=== PATIENT | male | born 1940 | race African-American/Black ===

== ENCOUNTER 2017-11-07 09:20 | Observation (INO) | payer MEDICARE ==
[2017-11-07] MEDS ORDERED: Nitroglycerin 2% Ointment 1 INCH/1 GM Packet ONE (09:39)
[2017-11-07 09:51] LABS: #Eosinphils 0.2 thou/uL (0.0-0.7); #Lymphocytes 2.4 thou/uL (1.20-3.40); #Monocytes 0.5 thou/uL (0.11-0.59); #Neutrophils 4.8 thou/uL (1.40-6.50); %Eosinophils 2.7 % (0.0-10.0); %Monocytes 6.7 % (0.0-10.0); %Neutrophils 60.6 % (42.0-75.0); Hemoglobin 13.9 g/dL (14.0-18.0); Mean Corpuscular HGB CONC 32.4 g/dL (32.0-36.0); Mean Corpuscular Hemoglobin 28.9 pg (27.0-31.0); Mean Corpuscular Volume 89.1 fl (80.0-94.0); Mean Platelet Volume 7.3 fL (7.4-10.4); Platelet Count 277 thou/uL (130-400); RBC Distribution Width 12.5 % (11.5-14.5); Red Blood Cell (RBC) Count 4.81 mill/uL (4.70-6.10)
--- NOTE | 2017-11-07 09:57 | RAD ---
CHEST 1 VIEW: HISTORY: Pain. COMPARISON: 09/26/15. FINDINGS/IMPRESSION: There are sternotomy wires. Normal cardiac silhouette. The pulmonary vessels are slightly prominent . There are reticulonodular opacities, without consolidation or mass. No pleural effusion or pneumo thorax. No osseous abnormalities. POS: [facility]
[2017-11-07 10:19] LABS: Troponin I Less than 0.010 ng/mL (< 0.028)
[2017-11-07 10:22] LABS: ALT (SGPT) 15 U/L (8-55); AST (SGOT) 27 U/L (5-34); Alkaline Phosphatase 69 U/L (40-150); Anion Gap 15 mmol/L (10-20); BUN (Urea Nitrogen) 12 mg/dL (8.4-25.7); Bilirubin, Total 0.5 mg/dL (0.2-1.2); CK (CPK) 435 U/L (30-200); Calc. Creatinine Clearance 0 mL/min (70-130); Calcium 10.6 mg/dL (7.8-10.44); Carbon Dioxide 21 mmol/L (23-31); Chloride 102 mmol/L (98-107); Estimated GFR-MDRD Greater than 90; Globulin 4.2 g/dL (2.4-3.5); Glucose 129 mg/dL (83-110); Potassium 4.3 mmol/L (3.5-5.1); Protein, Total 8.2 g/dL (5.8-8.1); Sodium 134 mmol/L (136-145)
[2017-11-07 10:23] LABS: CKMB 8.7 ng/mL (0-6.6)
[2017-11-07 13:17] LABS: Troponin I Less than 0.010 ng/mL (< 0.028)
[2017-11-07 13:25] VITALS: BMI 32.1
[2017-11-07] MEDS ORDERED: Acetaminophen 500 MG TAB PO PRN (14:37)
[2017-11-07] MEDS ORDERED: Nitroglycerin 0.4 MG TAB (25 Tab Bottle) SL PRN (14:37)
[2017-11-07] MEDS ORDERED: Docusate 100 MG CAP PO PRN (14:37)
[2017-11-07] MEDS ORDERED: Ondansetron HCl/PF 4 MG/2 ML Vial IVP PRN (14:37)
[2017-11-07] MEDS ORDERED: Ondansetron ODT 4 MG TAB PO PRN (14:37)
[2017-11-07] MEDS ORDERED: Milk Of Magnesia 30 ML UDCUP PO PRN (14:37)
[2017-11-07] MEDS ORDERED: HumaLOG 300 UNITS/3 ML VIAL SC PRN (17:04)
[2017-11-07] MEDS ORDERED: Dextrose 50% Abboject 50 ML SYRINGE SLOW IVP PRN (17:04)
[2017-11-07] MEDS ORDERED: Dextrose 5% in Water 1,000 ML IV PRN (17:04)
[2017-11-07] MEDS ORDERED: hydrALAZINE 20 MG/ML VIAL SLOW IVP PRN (17:05)
[2017-11-07] MEDS ORDERED: Morphine 5 MG/ML SYRINGE SLOW IVP PRN (17:07)
[2017-11-07] MEDS: Lubiprostone 8 MCG CAP PO SCH (18:44)
[2017-11-07] MEDS: cloNIDine 0.1 MG TAB PO SCH (20:38)
[2017-11-07] MEDS: hydrALAZINE 25 MG TAB PO SCH (20:38)
[2017-11-07] MEDS: Amlodipine 10 MG TAB PO SCH (20:38)
[2017-11-07] MEDS: Mometasone/Formoterol 120 PUFF INHALER INH SCH (20:41)
[2017-11-07] MEDS ORDERED: RILUZOLE 50 MG PO SCH (21:00)
[2017-11-07 22:45] LABS: Bilirubin Negative (Negative); Blood, Urine Negative (Negative); Clarity CLEAR (Clear); Glucose, Urine (Dipstick) Negative (Negative); Leukocyte Negative (Negative); Nitrite Negative (Negative); Protein, Urine (Dipstick) 30 mg/dL (Neg-Trace); Specific Gravity, Urine 1.012 (1.002-1.036); Urobilinogen 0.2 mg/dL (0.2-1.0)
[2017-11-07 22:50] LABS: Bacteria/HPF None Seen HPF (None Seen); Hyaline Casts/LPF 0-3 HYALINE CAST LPF (0-3 Hyaline); RBC/HPF 0-3 HPF (0-3); Squamous Epithelial None Seen HPF (0-3); WBC/HPF None Seen HPF (0-3)
--- NOTE | 2017-11-08 00:09 | HP ---
DATE OF ADMISSION: 11/07/2017 PRIMARY CARE PHYSICIAN: Dr. Sridhar Whaley. CHIEF COMPLAINT: Chest pain. HISTORY OF PRESENT ILLNESS: The patient states he was stricken by substernal chest pain or pressure. No other symptoms regarding shortness of breath, diaphoresis, radiation of pain. Denies any heartb urn symptoms at this point in time. The patient took nitroglycerin and alleviated his chest pain and given the fact that it was nitro sensitive, he was instructed by his drive tester and PCP to present to emergency department in those situations. Patient presented to Emergency Department and continue d to have resolution of pain following nitro. Patient is followed by Dr. Faria on an outpatient bas is, had stress test in the last month which was normal. He is known to have bradycardia down into th e 30s and is pending an electrophysiology workup, I believe in [place]. Pending one month appointmen t, did not take his heart rate during this episode. Struggles with chronic constipation and poor uri ne stream, but has no active symptoms currently. FORMAL REVIEW OF SYSTEMS: No fevers, no chills, no cough, no congestion. Positive chest pain. No s hortness of breath. No lower extremity edema. Positive constipation. Positive difficulty urine str eam. No flank pain, no dysuria, no hematuria, no headaches or vision changes. No syncopal episodes. ALLERGIES: No known drug allergies. PAST MEDICAL HISTORY: Coronary artery disease, vitamin D deficiency, gastroesophageal reflux disease , diabetes type 2, essential hypertension, chronic constipation, enlarged prostate with lower urinary symptoms, hypercholesterolemia, lumbar spondylosis, prior parotid gland mass right side, COPD, ALS, colon polyp. MEDICATIONS AT HOME: Include amlodipine 10 mg, clonidine 0.1 mg b.i.d., Amitiza 24 mcg, metformin 10 00 mg b.i.d., hydralazine 50 mg b.i.d., atorvastatin 20 mg, omeprazole 40 mg, full dose aspirin 325, riluzole 50 mg b.i.d., losartan/hydrochlorothiazide 100/25 once daily, Breo Ellipta 100/25 mcg 1 inha lation every day. PAST SURGICAL HISTORY: History of CABG in 2008, history of carotid artery and endarterectomy bilater ally in 2010. SOCIAL HISTORY: The patient is a former smoker. No alcohol abuse reported. Currently, no tobacco a buse reported currently. FAMILY HISTORY: Father with CVA, heart disease. Mother with CVA, colon cancer and heart disease. PHYSICAL EXAMINATION: VITAL SIGNS: Temperature of 97.7, pulse of 53, respiratory rate of 20, oxygen saturation 92% on room air, blood pressure 165/69. GENERAL: The patient is alert and oriented, no acute distress. HEENT: Head is normocephalic, atraumatic. Extraocular movements are intact. Sclerae are clear. Or al mucosa is moist. CARDIAC: Heart slightly bradycardic at time of exam. Systolic murmur present. LUNGS: Clear to auscultation bilaterally. Moderate air movement. No wheezes, rhonchi or rales. ABDOMEN: Protuberant, nontender, positive bowel sounds. EXTREMITIES: Lower extremities without cyanosis or edema. NEUROLOGIC: The patient is alert and oriented x3, no focal deficits. Speech is normal. LABORATORY WORK: White blood cell count of 8.0, hemoglobin of 13.9, platelet count of 277. Sodium o f 134, potassium of 4.3, creatinine of 0.8, glucose of 129. AST of 27, ALT of 15. Troponins x3 of 0 .01. Albumin 4.0. CK elevated to 435. ASSESSMENT: Chest pain, rule out myocardial infarction, chronic obstructive pulmonary disease, diabe mehrdad type 2, chronic constipation, coronary artery disease, bradycardia and hypertension. PLAN: Current troponin trend is negative given recent stress test with ejection fraction of 60%, nor mal last month. We will not seek additional interventions. At this point in time, we will monitor t he patient on telemetry for episodes of bradycardia if chest pain returns. The patient may be a cand idate for a long-acting nitrate such as Imdur. We will monitor the patient's blood pressure and incr ease possibly clonidine or hydralazine to t.i.d. as needed. Control patient's chronic constipation s ymptoms with PRNs. Continue Amitiza. No current flare ups in COPD. We will continue exchange for Breo likely Dulera while inpatient. We will give p.r.n. nebs. We will trend blood glucose whil e inpatient. Monitor with sliding scale insulin for any elevation. Any further changes, we will con sult Cardiology. Otherwise, plan for discharge tomorrow.
[2017-11-08 05:00] LABS: #Eosinphils 0.2 thou/uL (0.0-0.7); #Lymphocytes 1.9 thou/uL (1.20-3.40); #Monocytes 0.6 thou/uL (0.11-0.59); #Neutrophils 4.9 thou/uL (1.40-6.50); %Basophils 0.5 % (0.0-1.0); %Lymphocytes 24.9 % (21.0-51.0); %Neutrophils 63.7 % (42.0-75.0); Hemoglobin 12.5 g/dL (14.0-18.0); Mean Corpuscular HGB CONC 32.9 g/dL (32.0-36.0); Mean Corpuscular Hemoglobin 29.3 pg (27.0-31.0); Mean Corpuscular Volume 89.1 fl (80.0-94.0); Mean Platelet Volume 7.5 fL (7.4-10.4); Platelet Count 239 thou/uL (130-400); RBC Distribution Width 12.5 % (11.5-14.5); Red Blood Cell (RBC) Count 4.27 mill/uL (4.70-6.10); White Blood Cell (WBC) Count 7.8 thou/uL (4.8-10.8)
[2017-11-08 05:20] LABS: ALT (SGPT) 10 U/L (8-55); AST (SGOT) 16 U/L (5-34); Albumin 3.5 g/dL (3.4-4.8); Alkaline Phosphatase 60 U/L (40-150); Anion Gap 11 mmol/L (10-20); BUN (Urea Nitrogen) 13 mg/dL (8.4-25.7); Bilirubin, Total 0.5 mg/dL (0.2-1.2); Calc. Creatinine Clearance 107 mL/min (70-130); Carbon Dioxide 25 mmol/L (23-31); Chloride 106 mmol/L (98-107); Estimated GFR-MDRD Greater than 90; Globulin 3.2 g/dL (2.4-3.5); Glucose 118 mg/dL (83-110); Potassium 3.9 mmol/L (3.5-5.1); Protein, Total 6.7 g/dL (5.8-8.1); Sodium 138 mmol/L (136-145)
[2017-11-08] MEDS: Mometasone/Formoterol 120 PUFF INHALER INH SCH (06:26)
[2017-11-08] MEDS ORDERED: metFORMIN 500 MG TAB PO SCH (08:00)
[2017-11-08 08:24] VITALS: BP 168/76; TEMP 97.9
[2017-11-08] MEDS ORDERED: Metamucil PACK PO PRN (09:00)
[2017-11-08] MEDS ORDERED: Non-Formulary Item 1 EACH (Omeprazole [Omeprazole] 40 MG) PO SCH (09:00)
[2017-11-08] MEDS ORDERED: Losartan/Hydrochlorothiazide 100 mg/25 mg Tablet PO SCH ×2 (09:00)
[2017-11-08] MEDS ORDERED: Atorvastatin Calcium 20 MG TAB PO SCH (09:00)
[2017-11-08] MEDS ORDERED: Aspirin 325 MG TAB PO SCH (09:00)
[2017-11-08] MEDS: cloNIDine 0.1 MG TAB PO SCH (09:12)
[2017-11-08] MEDS: Lubiprostone 8 MCG CAP PO SCH (09:13)
[2017-11-08] MEDS: Amlodipine 10 MG TAB PO SCH (09:13)
[2017-11-08] MEDS: hydrALAZINE 25 MG TAB PO SCH (09:13)
--- NOTE | 2017-11-10 10:41 | DIS ---
DATE OF ADMISSION: 11/07/2017 DATE OF DISCHARGE: 11/08/2017 PRIMARY CARE PHYSICIAN: Sridhar Whaley D.O. PRESENTING HISTORY OF PRESENT ILLNESS: The patient presented to the hospital for chest pain that was relieved by nitro. He had no further chest pain while inpatient. His blood pressures have been flu ctuating. He denied any flare ups of COPD or issues with his blood sugar being a diabetic. He strug gles with chronic constipation, but has no abdomen pain and his last bowel movement was prior to admi ssion. The patient is being worked up on an outpatient basis by I believe Dr. Faria for bradycardia . He has an appointment in one month with Electrophysiology for possible pacemaker placement. He medina d clean stress test a month ago. He had no episodes of bradycardia below 40s. He was asymptomatic a t his lowest rate of 42 documented. The patient was typically running in the 50s, asymptomatic, ambu latory to the restroom without difficulty. Discussed with patient's family, titration of the patient 's blood pressure medications and continuation of nitro. If the patient continues to need nitro regu larly, we may consider long-acting nitrates with follow up with Cardiology. Recommend he follow up w ith his manager activities in a month and his PCP, Dr. Sridhar Whaley, in a week. Increase th e patient's clonidine to affected site t.i.d. with patch at 0.1 mg. Continued other home medications including amlodipine 10 mg, aspirin 325 mg, Lipitor 20 mg, Breo Ellipta 100/25 mcg per inhalation, h ydralazine 50 mg b.i.d., losartan/hydrochlorothiazide 100/25 once daily, milk of magnesia 30 mg, Nitr ostat 0.4 mg every 5 minutes p.r.n. chest pain x3 and then present to emergency department if chest p ain continues, omeprazole 40 mg p.r.n., MiraLax 17 grams, Metamucil daily 660 grams, riluzole 50 mg q .12 hours. Troponins x3 were negative. The patient discharged home in good condition. Cardiac diet was recommended. No consultations were performed.
--- NOTE | 2017-12-11 19:31 | EKG ---
Test Reason : Blood Pressure : / mmHG Vent. Rate : 049 BPM Atrial Rate : 049 BPM P-R Int : 256 ms QRS Dur : 090 ms QT Int : 454 ms P-R-T Axes : 036 -18 067 degrees QTc Int : 410 ms Marked sinus bradycardia with 1st degree A-V block Abnormal ECG When compared with ECG of 07-NOV-2017 09:34, (Unconfirmed) AL interval has increased Confirmed by DR. Josue BONILLA ([id number]) on 12/11/2017 7:30:49 PM Referred By: FÉLIX Confirmed By:DR. Josue BONILLA
--- NOTE | 2017-12-25 15:03 | EKG ---
Test Reason : Blood Pressure : / mmHG Vent. Rate : 054 BPM Atrial Rate : 054 BPM P-R Int : 194 ms QRS Dur : 092 ms QT Int : 460 ms P-R-T Axes : -15 -12 029 degrees QTc Int : 436 ms Sinus bradycardia Otherwise normal ECG Confirmed by YONAS DUBOIS ([id number]), map editor ISABEL WAITE ([id number]) on 12/25/2017 3:03:13 PM Referred By: Confirmed By:YONAS DUBOIS
== END 2017-11-08 11:29 | disposition home or self-care (01) ==
LOC: ERS 09:20 → 2SW 10:45
PROVIDERS: ADMIT Family Medicine; ATTEND Family Medicine
DX: R07.2 Precordial pain (principal); J44.9 Chronic obstructive pulmonary disease, unspecified; E11.9 Type 2 diabetes mellitus without complications; K59.09 Other constipation; I25.10 Atherosclerotic heart disease of native coronary artery without angina pectoris; K21.9 Gastro-esophageal reflux disease without esophagitis; I10 Essential (primary) hypertension; E78.00 Pure hypercholesterolemia, unspecified; G12.21 Amyotrophic lateral sclerosis; N40.1 Benign prostatic hyperplasia with lower urinary tract symptoms; R39.12 Poor urinary stream; Z87.891 Personal history of nicotine dependence; Z79.82 Long term (current) use of aspirin; Z79.84 Long term (current) use of oral hypoglycemic drugs; Z79.899 Other long term (current) drug therapy; Z98.890 Other specified postprocedural states; Z95.1 Presence of aortocoronary bypass graft
CPT/HCPCS: 71045; 80053 ×2; 82550; 82553; 82962; 84484 ×2; 85025 ×2; 93005 ×2; 94640 ×2; 99285; G0378; 36415; 36416; 81003; 81015; 93010

== ENCOUNTER 2017-11-24 10:07 | Outpatient (CLI) | payer MEDICARE ==
[2017-11-24 11:30] LABS: Hemoglobin 13.4 g/dL (14.0-18.0); Mean Corpuscular HGB CONC 32.4 g/dL (32.0-36.0); Mean Corpuscular Hemoglobin 29.3 pg (27.0-31.0); Mean Corpuscular Volume 90.6 fl (80.0-94.0); Mean Platelet Volume 7.3 fL (7.4-10.4); Platelet Count 301 thou/uL (130-400); RBC Distribution Width 12.4 % (11.5-14.5); Red Blood Cell (RBC) Count 4.56 mill/uL (4.70-6.10); White Blood Cell (WBC) Count 8.2 thou/uL (4.8-10.8)
[2017-11-24 11:39] LABS: INR-International Normal Ratio 1.1; PTT 28.1 SEC (22.9-36.1); Prothrombin Time 14.4 SEC (12.0-14.7)
[2017-11-24 11:45] LABS: Anion Gap 10 mmol/L (10-20); BUN (Urea Nitrogen) 12 mg/dL (8.4-25.7); Calc. Creatinine Clearance 0 mL/min (70-130); Calcium 10.9 mg/dL (7.8-10.44); Carbon Dioxide 27 mmol/L (23-31); Chloride 100 mmol/L (98-107); Estimated GFR-MDRD Greater than 90; Glucose 157 mg/dL (83-110); Potassium 3.9 mmol/L (3.5-5.1); Sodium 133 mmol/L (136-145)
== END 2017-11-24 10:08 | disposition home or self-care (01) ==
LOC: LABBT 10:07
PROVIDERS: ATTEND Internal Medicine Cardiovascular Disease
DX: Z01.818 Encounter for other preprocedural examination (principal); I25.10 Atherosclerotic heart disease of native coronary artery without angina pectoris
CPT/HCPCS: 80048; 85027; 85610; 85730

== ENCOUNTER → 2017-11-26 | Day surgery (SDC) | payer MEDICARE ==
[2017-11-24 10:36] VITALS: BMI 31.7
[~2017-11-26] MED LIST: Atropine Sulfate 1 mg/1 ml Vial ONE; Diazepam 5 MG TAB ONE; Iopamidol 370 76% 100 ML VIAL ONE; Lidocaine 1% (PF) 30 ML VIAL ONE; cloNIDine 0.1 MG TAB ONE
--- NOTE | 2017-11-27 13:45 | DIS ---
HOSPITAL SUMMARY: Mr. Cole underwent cardiac catheterization today that revealed the followin. He has three-vessel coronary artery disease including the following: A. Left main, no stenosis. B. LAD, only 50% proximal stenosis. The internal mammary graft is patent, but it is atretic due to competitive flow. C. Circumflex, widely patent graft to the marginal branch with some distal disease best treated medically if possible. D. Right coronary 80% proximal lesion, patent graft with good flow. E. Ejection fraction 45%, inferior hypokinesis. F. End-diastolic pressure was 18-20 indicating some degree of left ventricular dysfunction with some element of compensated heart failure. The patient's heart rate is in the high 40s with intermittently lower heart rates. PLAN: At this time, I would recommend he undergo pacemaker insertion. I discussed I am concerned about putting a traditional right ventricular pacer in for worsening his left ventricular ejection fraction. Discussed possible options of trying to pace the His bundle, which I think it would be a good option in this gentleman as his QRS is narrow versus biventricular pacing. The patient wishes to see Dr. Nelson in [place] about the possibility of having a lead placed in the His. His predominant problem is sinus bradycardia, but he also has a long first degree AV block and almost certainly will help pace the ventricle. After the pacemaker was placed, would add Carvedilol 6.25 mg twice a day and probably stop hydralazine. Also, atorvastatin was increased on this admission as the LDL cholesterol was above the target at 109. Also, consider adding Zetia if that does not get the LDL down to targets. If he has intractable angina, stenting could be done of the distal circumflex, distal to the graft, but I am concerned this could disrupt the saphenous vein graft itself , we would try to treat medically if at all possible. DIAN
--- NOTE | 2017-11-27 13:46 | ADD-OP ---
ADDENDUM The cardiac catheterization was done from the right groin. The micropuncture kit would not go easily as there was some resistance to enter the artery. We needed to use the usual access needle with a W holey wire, which gave adequate support. There did not look like there was calcium in the vessel. I t was just somewhat fibrotic. Consider going in the left side if he needs a repeat cardiac catheteri zation. The access was obtained from the right side, but there was some additional steps need to be taken as outlined above. The right coronary was cannulated with AL1 as the right coronary arises fro m the left cusp.
== END ==
LOC: CCL 05:56
PROVIDERS: ATTEND Internal Medicine Cardiovascular Disease
PROC: 4A023N7 Measurement of Cardiac Sampling and Pressure, Left Heart, Percutaneous Approach (ICD-10-PCS; principal; 2017-11-26)
DX: I25.119 Atherosclerotic heart disease of native coronary artery with unspecified angina pectoris (principal); I10 Essential (primary) hypertension; E78.00 Pure hypercholesterolemia, unspecified; E11.9 Type 2 diabetes mellitus without complications; K21.9 Gastro-esophageal reflux disease without esophagitis; J45.909 Unspecified asthma, uncomplicated; F17.210 Nicotine dependence, cigarettes, uncomplicated; Z79.84 Long term (current) use of oral hypoglycemic drugs; Z79.899 Other long term (current) drug therapy
CPT/HCPCS: 93459; C1769; J0461; J1644; J2001

== ENCOUNTER 2018-02-17 08:27 | Outpatient (CLI) | payer MEDICARE ==
--- NOTE | 2018-02-17 09:57 | RAD ---
CHEST TWO VIEWS: History: Cough, congestion. Comparison: 01-29-18 FINDINGS: Cardiac silhouette and pulmonary vasculature are unremarkable. Bibasilar linear atelectasis is unchan ged. Mediastinum is midline with aortic calcification, post-operative changes, and a dual-lead left s ubclavian cardiac electronic device. No lobar consolidation, pneumothorax, or pleural fluid. IMPRESSION: Chronic type findings are stable. No active cardiopulmonary abnormalities are demonstrated. POS: OFF
== END 2018-02-17 08:28 | disposition home or self-care (01) ==
LOC: RAD 08:27
PROVIDERS: ATTEND Internal Medicine Critical Care Medicine
DX: R06.00 Dyspnea, unspecified (principal)
CPT/HCPCS: 71046

== ENCOUNTER 2019-02-27 20:35 | Inpatient (IN) | payer MEDICARE, BC ==
--- NOTE | 2019-02-27 21:15 | RAD ---
ONE VIEW CHEST: 02/27/19 COMPARISON: 11/07/17, 02/23/19. HISTORY: Dyspnea. FINDINGS: Sternotomy wires are redemonstrated. There is a left sided transvenous pacemaker with lead position i n the region of the right atrium. The right ventricular lead is difficult to appreciate on this exam . Two view chest radiograph may be beneficial to determinate lead position. Heart size is upper cristina l. Pulmonary vessels are prominent. There is interstitial prominence which may be due to edema or inf iltrate. No consolidation or mass. No pleural effusion or pneumothorax. IMPRESSION: 1. Limited evaluation of the left sided transvenous pacemaker. Dedicated two view chest radiogra ph is recommended. 2. Volume overload and interstitial edema. POS: [facility]
[2019-02-27 21:48] LABS: #Eosinphils 0.2 thou/uL (0.0-0.7); #Lymphocytes 1.3 thou/uL (1.20-3.40); #Monocytes 0.4 thou/uL (0.11-0.59); #Neutrophils 7.6 thou/uL (1.40-6.50); %Basophils 0.1 % (0.0-1.0); %Eosinophils 1.6 % (0.0-10.0); %Lymphocytes 14.2 % (21.0-51.0); %Monocytes 4.1 % (0.0-10.0); %Neutrophils 80.1 % (42.0-75.0); Hemoglobin 12.3 g/dL (14.0-18.0); Mean Corpuscular Hemoglobin 28.9 pg (27.0-31.0); Mean Corpuscular Volume 90.3 fL (78.0-98.0); Mean Platelet Volume 7.4 fL (7.4-10.4); Platelet Count 269 thou/uL (130-400); RBC Distribution Width 13.2 % (11.5-14.5); Red Blood Cell (RBC) Count 4.25 mill/uL (4.70-6.10); White Blood Cell (WBC) Count 9.5 thou/uL (4.8-10.8)
[2019-02-27 22:07] LABS: ALT (SGPT) 12 U/L (8-55); AST (SGOT) 16 U/L (5-34); Albumin 3.7 g/dL (3.4-4.8); Alkaline Phosphatase 78 U/L (40-150); Anion Gap 13 mmol/L (10-20); BUN (Urea Nitrogen) 9 mg/dL (8.4-25.7); Bilirubin, Total 0.3 mg/dL (0.2-1.2); CK (CPK) 329 U/L (30-200); Calc. Creatinine Clearance 0 mL/min (70-130); Calcium 9.8 mg/dL (7.8-10.44); Carbon Dioxide 24 mmol/L (23-31); Chloride 103 mmol/L (98-107); Estimated GFR-MDRD Greater than 90; Globulin 3.7 g/dL (2.4-3.5); Glucose 176 mg/dL (83-110); Potassium 3.9 mmol/L (3.5-5.1); Protein, Total 7.4 g/dL (5.8-8.1); Sodium 136 mmol/L (136-145)
[2019-02-27] MEDS ORDERED: Furosemide 40 MG/4 ML VIAL ONE (22:42)
[2019-02-28 00:56] LABS: Troponin I 0.022 ng/mL (< 0.028)
[2019-02-28 04:34] LABS: Troponin I 0.018 ng/mL (< 0.028)
[2019-02-28] MEDS ORDERED: Ondansetron PF 4 MG/2 ML Vial IVP PRN (07:49)
[2019-02-28] MEDS ORDERED: Ondansetron ODT 4 MG TAB PO PRN (07:49)
[2019-02-28 07:57] VITALS: BMI 30.9
[2019-02-28] MEDS ORDERED: Prevnar 13-Val Conj/PF 0.5 ML SYRINGE IM ONE (08:30)
[2019-02-28] MEDS ORDERED: metFORMIN 500 MG TAB PO PRN (09:43)
[2019-02-28] MEDS ORDERED: Nitroglycerin 0.4 MG TAB (25 Tab Bottle) SL PRN (09:43)
[2019-02-28] MEDS ORDERED: PSYLLIUM HUSK 660 GM PO PRN (09:43)
[2019-02-28] MEDS ORDERED: Milk Of Magnesia 30 ML UDCUP PO PRN (09:43)
[2019-02-28] MEDS ORDERED: Polyethylene Glycol 3350 17 GM Packet PO PRN (09:43)
[2019-02-28] MEDS ORDERED: Non-Formulary Item 1 EACH (Hydralazine Hcl [Hydralazine Hcl] 50 MG) PO PRN (09:43)
[2019-02-28] MEDS ORDERED: Metamucil PACK PO SCH (10:15)
[2019-02-28] MEDS ORDERED: hydrALAZINE 25 MG TAB PO PRN (10:16)
--- NOTE | 2019-02-28 10:17 | CON ---
DATE OF CONSULTATION: HISTORY OF PRESENT ILLNESS: Jose Cole is an 78-year-old obese gentleman, who was admitted last night with shortness of breath. He was required noninvasive ventilation. This morning, he is off his BiPAP, said he is feeling better. He denies any chest pain or chills. He has a and a daughter at the bedside, who states that couple of months ago, he could go to [employer] without getting short of breath. Yesterday, he got markedly dyspneic with chest pain, chills, or sweats. PAST MEDICAL HISTORY: Outlined in his extensive medical history pertinent for coronary artery disease, status post cardiac cath, history of diabetes, hyperlipidemia, hypertension, history of ALS apparently sees a physician out of [place], history of lumbar spondylosis, and history of reflux. PAST SURGICAL HISTORY: Bypass surgery, pacemaker, stent. Alcohol, none. Pack-a-day smoking, quit 10 years ago. Previous pneumonia. No TB or asthma. No sleep apnea. HOME MEDICATIONS: 1. Metformin. 2. Hydralazine. 3. Catapres. 4. Amlodipine. 5. Flomax. 6. Riluzole. 7. Omeprazole. 8. Nitroglycerin. 9. Losartan. 10. Gabapentin. 11. Lasix. 12. Plavix. 13. Lipitor. 14. Aspirin. SOCIAL AND FAMILY HISTORY: Unremarkable. REVIEW OF SYSTEMS: Otherwise, 10-point negative. PHYSICAL EXAMINATION: VITAL SIGNS: Saturations are 93% on 2 L, pulse 82, blood pressure 167/73, and respiratory rate 20. GENERAL: Morbidly obese gentleman. EXTREMITIES: No edema. CHEST: Decreased breath sounds, minimal crackles. CARDIAC: Normal S1 and S2. No gallops. ABDOMEN: No masses. IMAGING STUDIES: X-ray shows bibasilar atelectatic changes, cardiomegaly. His lytes were normal. Blood sugar was slightly elevated. Renal function normal. White count normal. Hemoglobin and hematocrit of 12 and 38. IMPRESSION: 1. Acute respiratory failure. 2. Congestive heart failure. 3. Diastolic dysfunction. 4. Morbid obesity. 5. History of amyotrophic lateral sclerosis. Pulmonary hansen, I would initiate neb treatments, steroids, or supportive care. Cardiac input. We will follow. Consultation note, 70 minutes, 50% direct patient. Job ID: [id number]
[2019-02-28] MEDS ORDERED: Tamsulosin HCl 0.4 MG CAP PO SCH (11:00)
[2019-02-28] MEDS ORDERED: Mometasone/Formoterol 120 PUFF INHALER INH SCH (11:00)
[2019-02-28] MEDS ORDERED: Atorvastatin Calcium 20 MG TAB PO SCH (11:00)
[2019-02-28] MEDS ORDERED: Clopidogrel Bisulfate 75 MG TAB PO SCH (11:00)
[2019-02-28] MEDS ORDERED: Losartan/Hydrochlorothiazide 100 mg/25 mg Tablet PO SCH (11:00)
[2019-02-28] MEDS ORDERED: cloNIDine 0.1 MG TAB PO SCH (11:00)
[2019-02-28] MEDS ORDERED: Furosemide 40 MG TAB PO SCH (11:00)
[2019-02-28] MEDS ORDERED: Enoxaparin Sodium 40 MG/0.4 ML SYRINGE SC SCH (11:00)
[2019-02-28] MEDS ORDERED: Aspirin 325 MG TAB PO SCH (11:00)
--- NOTE | 2019-02-28 11:08 | HP ---
CHIEF COMPLAINT: Shortness of breath. HISTORY OF PRESENT ILLNESS: This is an 78-year-old gentleman with a history of ALS, COPD, hypertension, hyperlipidemia, type 2 diabetes, coronary artery disease, who presented to the emergency department with acute onset of shortness of breath. The patient was seen in my office in the past 1 to 2 weeks for episode of bronchitis. He was started on antibiotics and steroids at that time and has had some improvement of his cough. The family states that he had been improving, last night when he was eating stew, he developed an episode of shortness of breath and fell to his knees. EMS was called and brought into the emergency department. He was given neb treatments, magnesium, and started back on his antibiotics. They also gave him one dose of Lasix and had some improvement of the shortness of breath. Again, this morning, while he was eating breakfast, he had an episode of shortness of breath, which resolved spontaneously. He denied chest pain, denied palpitations. He has had progressive worsening of his weakness due to the ALS, for which he follows up with his neurologist in [place]. PAST MEDICAL HISTORY: ALS, coronary artery disease status post coronary artery bypass graft, carotid stenosis status post endarterectomy, type 2 diabetes, hypertension, COPD. MEDICATIONS: Include; 1. DuoNeb p.r.n. 2. Amlodipine 10 mg daily. 3. Aspirin 325 daily. 4. Atorvastatin 20 mg daily. 5. Clonidine 0.1 b.i.d. 6. Plavix 75 mg daily. 7. Lasix 20 mg daily. 8. Losartan/hydrochlorothiazide 100/25 daily. 9. Metformin 500 mg p.r.n. 10. Dulera b.i.d. 11. Nitroglycerin p.r.n. 12. Riluzole 50 mg b.i.d. 13. Omeprazole 40 mg twice a day. 14. Tamsulosin 0.4 mg daily. ALLERGIES: NO KNOWN DRUG ALLERGIES. PAST SURGICAL HISTORY: Coronary artery bypass graft in 2008. Carotid endarterectomy bilateral in 2010. SOCIAL HISTORY: Former smoker. No alcohol abuse. , lives at home with his family. FAMILY HISTORY: Father with TIA and heart disease. Mother with CVA, colon cancer, and heart disease. REVIEW OF SYSTEMS: As per the history of present illness. GENERAL: He did have a recent upper respiratory infection, which led to bronchitis 1 to 2 weeks ago. Denies fevers or chills. Denies visual or hearing changes. CARDIAC: Denies chest pain. Positive shortness of breath. No palpitations. PULMONARY: Recurrent episodes of COPD exacerbation, followed by Dr. Pulido. Positive cough, improved. No hemoptysis. GI: Positive gastroesophageal reflux disease. No nausea, vomiting, or abdominal pain. : History of BPH. No dysuria or hematuria. NEUROLOGIC: Positive weakness. No falls. No syncope. PHYSICAL EXAMINATION: VITAL SIGNS: Temperature 97.8, pulse is 73, respirations 17, blood pressure 135/56, pulse ox 96% on 2 L. GENERAL: He is awake and alert. No acute distress, but he just had an episode of acute shortness of breath while eating. This is now resolved. Speech is clear. NECK: Supple. No bruits. HEART: Regular rate and rhythm. LUNGS: Decreased throughout. No wheeze, rales, or rhonchi. ABDOMEN: Obese, soft. EXTREMITIES: No edema. LABORATORY DATA: White blood cell count 9500, hemoglobin and hematocrit are 12.3 and 38.4, and platelets are 269. Sodium 136, potassium 3.9, chloride 103, CO2 of 24, BUN and creatinine are 9 and 0.84. Serum glucose greater than 90, glucose 176. Calcium of 9.8. CPK of 329. Troponin-I less than 0.01, 0.022, 0.018. BNP of 29.2. Chest x-ray revealed signs of volume overload and interstitial edema. ASSESSMENT AND PLAN: This is an 78-year-old gentleman with a history of ALS, COPD, coronary artery disease, and now with episodic dyspnea. 1. Chronic obstructive pulmonary disease exacerbation. We will continue steroid and neb treatment and oxygen. Appreciate Pulmonary evaluation. 2. Possible aspiration. We will consult Speech Therapy for swallow evaluation. May need a bedside barium swallow as well. 3. Coronary artery disease, stable. 4. Hypertension. We will restart his antihypertensives, has already improved with starting his home medications. 5. Note that he is off BiPAP from the Emergency Department, we will be able to transfer him off the ICU to telemetry. 6. Type 2 diabetes. We will check Accu-Cheks, and insulin coverage and continue his metformin. Job ID: [id number]
[2019-02-28] MEDS ORDERED: Dextrose 5% in Water 1,000 ML IV PRN (16:47)
[2019-02-28] MEDS ORDERED: HumaLOG 300 UNITS/3 ML VIAL SC PRN (16:47)
[2019-02-28] MEDS ORDERED: Dextrose 50% Abboject 50 ML SYRINGE IVP PRN (16:47)
[2019-02-28] MEDS: metFORMIN 500 MG TAB PO PRN (16:50)
[2019-02-28] MEDS: Mometasone/Formoterol 120 PUFF INHALER INH SCH (18:55)
[2019-02-28] MEDS ORDERED: Non-Formulary Item 1 EACH (Gabapentin [Gralise] 300 MG) PO SCH (21:00)
[2019-02-28] MEDS ORDERED: RILUZOLE 50 MG PO SCH (21:00)
[2019-02-28] MEDS: Amlodipine 10 MG TAB PO SCH (21:53)
[2019-02-28] MEDS: Gabapentin 300 MG CAP PO SCH (21:54)
[2019-02-28] MEDS: cloNIDine 0.1 MG TAB PO SCH (21:54)
[2019-03-01 05:47] LABS: #Basophils 0.1 thou/uL (0.0-0.2); #Eosinphils 0.1 thou/uL (0.0-0.7); #Monocytes 0.9 thou/uL (0.11-0.59); #Neutrophils 8.4 thou/uL (1.40-6.50); %Basophils 0.5 % (0.0-1.0); %Eosinophils 0.6 % (0.0-10.0); %Lymphocytes 17.5 % (21.0-51.0); %Monocytes 8.2 % (0.0-10.0); %Neutrophils 73.3 % (42.0-75.0); Hemoglobin 12.2 g/dL (14.0-18.0); Mean Corpuscular HGB CONC 31.3 g/dL (32.0-36.0); Mean Corpuscular Hemoglobin 28.2 pg (27.0-31.0); Mean Corpuscular Volume 90.1 fL (78.0-98.0); Mean Platelet Volume 7.4 fL (7.4-10.4); Platelet Count 300 thou/uL (130-400); Red Blood Cell (RBC) Count 4.33 mill/uL (4.70-6.10); White Blood Cell (WBC) Count 11.4 thou/uL (4.8-10.8)
[2019-03-01 06:07] LABS: Anion Gap 13 mmol/L (10-20); BUN (Urea Nitrogen) 13 mg/dL (8.4-25.7); Calc. Creatinine Clearance 109 mL/min (70-130); Calcium 10.5 mg/dL (7.8-10.44); Carbon Dioxide 27 mmol/L (23-31); Chloride 104 mmol/L (98-107); Estimated GFR-MDRD Greater than 90; Glucose 124 mg/dL (83-110); Potassium 3.6 mmol/L (3.5-5.1); Sodium 140 mmol/L (136-145)
[2019-03-01] MEDS: Mometasone/Formoterol 120 PUFF INHALER INH SCH ×2 (07:40→18:50)
--- NOTE | 2019-03-01 08:28 | RAD ---
CHEST 1 VIEW: Date: 03/01/19 HISTORY: COPD. COMPARISON: 02/27/19. FINDINGS: Left-sided transvenous pacemaker and sternotomy wires are redemonstrated. There is persistent magnifi cation of the cardiac silhouette due to technique. Lung volumes continue to be diminished. Interstiti al opacities are unchanged and may in part be due to a diminished lung volume. Superimposed edema or infiltrate cannot be excluded. Pulmonary vessels continue to be prominent. IMPRESSION: 1. Volume overload. Interstitial edema. Congestive heart failure. 2. No significant change. POS: OFF
[2019-03-01] MEDS ORDERED: Clopidogrel Bisulfate 75 MG TAB PO SCH (09:00)
[2019-03-01] MEDS ORDERED: Losartan/Hydrochlorothiazide 100 mg/25 mg Tablet PO SCH ×2 (09:00)
[2019-03-01] MEDS ORDERED: Non-Formulary Item 1 EACH (Omeprazole [Omeprazole] 40 MG) PO SCH (09:00)
[2019-03-01] MEDS ORDERED: Furosemide 20 MG TAB PO SCH (09:00)
--- NOTE | 2019-03-01 09:17 | PRG ---
DATE OF SERVICE: 03/01/2019 SUBJECTIVE: The patient is feeling some better and he has no shortness of breath at rest. He did well with swallow evaluation. He did have another episode of shortness of breath after breathing treatment. He states that he was breathing in some mist, and became short of breath, which lasted a few minutes and then resolved spontaneously. He denies any chest pain. He also states that when he goes to the bathroom, he gets short of breath because he has to take off his oxygen. Appetite is good. Chest x-ray is pending. OBJECTIVE: VITAL SIGNS: Temperature 97.3, pulse is 70, respirations 14, blood pressure 156/68, pulse ox is 94% on 2 L nasal cannula. GENERAL: He is awake and alert. No acute distress. No conversational dyspnea. HEENT: Mucosa is moist. NECK: Supple. HEART: Regular rate and rhythm. LUNGS: Distant. No wheeze, rales, or rhonchi to auscultation. ABDOMEN: Obese. EXTREMITIES: No edema. LABORATORY DATA: White blood cell count 11,400, hemoglobin and hematocrit 12.2 and 39.0, and platelets of 300. Sodium 140, potassium 3.6, chloride 104, CO2 of 27, BUN and creatinine 13 and 0.77 with a GFR greater than 90. Accu-Cheks of 124, 120, 185. Calcium of 10.5. Most recent vitamin D low at 18.7. PTH was normal at 76.8. Chest x-ray from this morning is pending. ASSESSMENT AND PLAN: This is an 78-year-old gentleman with a history of amyotrophic lateral sclerosis, chronic obstructive pulmonary disease, hypertension, and coronary disease, now with persistent episodes of dyspnea. 1. Chronic obstructive pulmonary disease exacerbation. Continue medications per Pulmonary. Appreciate, Dr. Young's assistance. 2. Episodic dyspnea. No signs of aspiration per Speech therapy. We will consult Cardiology for evaluation and check an echocardiogram. 3. Hypertension, seems to be better on his antihypertensive. 4. Type 2 diabetes. We will continue his Accu-Cheks and coverage. 5. Amyotrophic lateral sclerosis continued with progressively worsening weakness. This could be definitely contributing to his shortness of breath. Dr. Young is recommending physical therapy. Job ID: [id number]
--- NOTE | 2019-03-01 09:43 | PRG ---
DATE OF SERVICE: 03/01/2019 SUBJECTIVE: This morning, he is better, less short of breath, less cough and wheezing. OBJECTIVE: VITAL SIGNS: Blood pressure 156/68, saturations are 94% on 2 L, temperature 97, and pulse 60. CHEST: Minimal crackles without wheezing. CARDIAC: Normal S1 and S2. No gallops. ABDOMEN: No masses. LABORATORY DATA: Unremarkable. His calcium is slightly elevated at 10.5. His chest x-ray shows bibasilar atelectatic changes, cardiomegaly. IMPRESSION: 1. Congestive heart failure. 2. Chronic obstructive pulmonary disease. 3. Morbid obesity. PLAN: Pulmonary hansen, continue present supportive care, neb treatment, and Dulera. Disposition as per primary care physician. Job ID: [id number]
[2019-03-01] MEDS: cloNIDine 0.1 MG TAB PO SCH ×2 (09:45→20:08)
[2019-03-01] MEDS: Atorvastatin Calcium 20 MG TAB PO SCH (09:45)
[2019-03-01] MEDS: Enoxaparin Sodium 40 MG/0.4 ML SYRINGE SC SCH (09:46)
[2019-03-01] MEDS: Aspirin 325 MG TAB PO SCH (09:46)
[2019-03-01] MEDS: Clopidogrel Bisulfate 75 MG TAB PO SCH (09:46)
[2019-03-01] MEDS: Tamsulosin HCl 0.4 MG CAP PO SCH (09:46)
[2019-03-01] MEDS: Furosemide 40 MG TAB PO SCH (09:46)
[2019-03-01] MEDS ORDERED: Furosemide 40 MG/4 ML VIAL SLOW IVP SCH (13:15)
[2019-03-01] MEDS ORDERED: Potassium Chloride 20 MEQ TAB PO SCH (13:15)
--- NOTE | 2019-03-01 13:53 | CON ---
DATE OF CONSULTATION: 03/01/2019 REASON FOR CONSULTATION: Shortness of breath, coronary artery disease. HISTORY OF PRESENT ILLNESS: Mr. Cole is a delightful 78-year old gentleman. The patient was brought to the hospital with difficulty breathing on 02/27/2019, that was 2 days ago. The patient had eaten his evening meal, felt short of breath, got into recliner, felt progressively more short of breath and ambulance was called. He had a CPAP machine at home, which he used to help assist his breathing. He has been admitted here for further evaluation. The patient did receive inhaled bronchodilators, which seemed to help some, but he is very short of breath with minimal exertion. PAST MEDICAL HISTORY: History of coronary artery bypass grafting. The patient did undergo cardiac catheterization in October 2017. At that time, he was found to have 3-vessel disease. The LAD had a 50% lesion with an atretic internal mammary artery due to competitive flow. Circumflex, patent graft. Right coronary artery, patent graft. Ejection fraction is 45%. MEDICATIONS: Prior to admission, he was taking, 1. Losartan/HCT 100/25 one a day. 2. Aspirin. 3. Amlodipine 10 mg a day. 4. Hydralazine if needed. 5. Metformin. 6. Atorvastatin. 7. Plavix. 8. Tamsulosin. 9. Gabapentin. ALLERGIES: NONE KNOWN. SOCIAL HISTORY: He quit smoking over a decade ago. He tells me he has a very supportive family. FAMILY HISTORY: Negative for heart disease in a young age. REVIEW OF SYSTEMS: CONSTITUTIONAL: Positive for weakness and fatigue. VISION: No changes. HEARING: No changes. PULMONARY: Positive for some shortness of breath as mentioned. CARDIAC: No chest pain. Positive for shortness of breath. GASTROINTESTINAL: No nausea, vomiting, or diarrhea. SKIN: No rashes. NEUROLOGIC: No unilateral weakness or numbness. PSYCHIATRIC: No unusual depression or anxiety. HEMATOLOGIC: No unusual bruising. GENITOURINARY: No burning with urination. PHYSICAL EXAMINATION: GENERAL: This is a pleasant gentleman, in no distress. VITAL SIGNS: Blood pressure 175/80, and pulse it is 70, it is paced. HEENT: Eyes, sclerae nonicteric. Mouth, mucous membranes moist. NECK: Supple. No lymphadenopathy. LUNGS: Clear. No wheezing, rales, or rhonchi. CARDIAC: Normal S1, normal S2. I do not hear murmur, rub, or gallop, but the heart sounds are somewhat distant. ABDOMEN: Soft and nontender. EXTREMITIES: No clubbing or cyanosis. There is no edema. IMAGING STUDIES: EKG sinus rhythm with first degree AV block. No acute changes. Chest x-ray shows a dual chamber pacemaker, some atelectasis. No definite pulmonary vascular congestion. LABORATORY DATA: Troponin levels were within the normal range. Creatinine is 0.77, potassium is 3.6. ASSESSMENT: Shortness of breath of uncertain etiology, maybe a combination of pulmonary and cardiac contribution. The patient does have very mild left ventricular dysfunction on catheterization, ejection fraction 45%, and also had increased end-diastolic pressure with some diastolic dysfunction. PLAN: 1. Echocardiogram is being done. 2. We will give him a single dose of Lasix. 3. We will continue to follow with you. Job ID: [id number]
--- NOTE | 2019-03-01 15:05 | PQF ---
CLINICAL DOCUMENTATION IMPROVEMENT CLARIFICATION FORM: ICD-10 Updated PLEASE DO AN ADDENDUM TO THE PROGRESS NOTE WITH ANY DOCUMENTATION UPDATES OR ADDITIONS AND CARRY THROUGH TO DC SUMMARY. THANK YOU. DATE: 03/01/2019: 03/02/2019 ATTN: Dr. Whaley Please exercise your independent, professional judgment in responding to the clarification form. Clinical indicators are provided on the bottom of this form for your review Please check appropriate box(s): HEART FAILURE: A. TYPE: [ ] Systolic / HFrEF [ ] Diastolic / HFpEF [ xx ] Combined Systolic / Diastolic B. ACUITY [ ] Acute [xx ] Acute on Chronic [ ] Chronic [ ] Other diagnosis [ ] Unable to determine In addition, please specify: Present on Admission (POA): [ xx] Yes [ ] No [ ] Unable to determine For continuity of documentation, please document condition throughout progress notes and discharge summary. Thank You. CLINICAL INDICATORS - SIGNS / SYMPTOMS / LABS H&P 02/28: Chest x-ray revealed signs of volume overload and interstitial edema. 02/28 (Hannah): Acute respiratory failure Congestive heart failure Diastolic dysfunction 03/01 (Giana): PMH: Ejection fraction is 45% Shortness of breath of uncertain etiology, maybe a combination of pulmonary and cardiac contribution. RISKS: H&P: 78 yo with hx of ALS, COPD, CAD. COPD exac. TREATMENT: MAR: Order 03/01: Lasix 40 mg IV now. MAR: Order 02/28: Lasix 40 mg po Daily Order 02/28: Resp: O2 to keep sats 92% Thank you, Kierra (This form is maintained as a part of the permanent medical record) 2015 [employer], [employer]. All Rights Reserved Kierra Gaitan RN, BSN [email or web address] Office: [phone] [facility]
[2019-03-01] MEDS: Gabapentin 300 MG CAP PO SCH (20:08)
[2019-03-01] MEDS: Amlodipine 10 MG TAB PO SCH (20:08)
[2019-03-02 05:15] LABS: #Eosinphils 0.2 thou/uL (0.0-0.7); #Lymphocytes 2.4 thou/uL (1.20-3.40); #Monocytes 0.8 thou/uL (0.11-0.59); %Basophils 0.3 % (0.0-1.0); %Eosinophils 1.9 % (0.0-10.0); %Lymphocytes 25.7 % (21.0-51.0); %Monocytes 8.1 % (0.0-10.0); Hemoglobin 12.6 g/dL (14.0-18.0); Mean Corpuscular HGB CONC 32.6 g/dL (32.0-36.0); Mean Platelet Volume 7.7 fL (7.4-10.4); Platelet Count 320 thou/uL (130-400); Red Blood Cell (RBC) Count 4.35 mill/uL (4.70-6.10); White Blood Cell (WBC) Count 9.4 thou/uL (4.8-10.8)
[2019-03-02 05:36] LABS: ALT (SGPT) 11 U/L (8-55); AST (SGOT) 15 U/L (5-34); Albumin 3.5 g/dL (3.4-4.8); Alkaline Phosphatase 76 U/L (40-150); Anion Gap 13 mmol/L (10-20); BUN (Urea Nitrogen) 18 mg/dL (8.4-25.7); Bilirubin, Total 0.5 mg/dL (0.2-1.2); Calc. Creatinine Clearance 87 mL/min (70-130); Calcium 10.4 mg/dL (7.8-10.44); Carbon Dioxide 28 mmol/L (23-31); Chloride 100 mmol/L (98-107); Estimated GFR-MDRD 90; Globulin 3.7 g/dL (2.4-3.5); Glucose 127 mg/dL (83-110); Potassium 3.8 mmol/L (3.5-5.1); Protein, Total 7.2 g/dL (5.8-8.1); Sodium 137 mmol/L (136-145)
[2019-03-02] MEDS: Mometasone/Formoterol 120 PUFF INHALER INH SCH ×2 (07:31→19:49)
--- NOTE | 2019-03-02 09:30 | PRG ---
DATE OF SERVICE: 03/02/2019 SUBJECTIVE: The patient continues to feel some better, less short of breath, but continues with dyspnea on exertion. Denies chest pain. He is eating without difficulties now. He passed a speech evaluation. Continues to need oxygen. Walking in the room and in the hallway, where he was not on oxygen at home. Continues to have some weakness and unsteadiness on his feet and needing assistance when out of bed. Denies nausea or vomiting. Appetite is improved. OBJECTIVE: VITAL SIGNS: Temperature 97.8, pulse is 75, respirations 16, blood pressure 109/55, and pulse ox 93% on BiPAP and 2 L nasal cannula. GENERAL: He is awake and alert, in no acute distress. He appears comfortable. NECK: Supple. HEART: Regular rate and rhythm with 2/6 systolic ejection murmur. LUNGS: Diminished. No wheezes. No rales at the bases. ABDOMEN: Obese. EXTREMITIES: With trace edema. LABORATORY DATA: White blood cell count 9.4, hemoglobin and hematocrit 12.6 and 38.7, and platelets of 320. Sodium 137, potassium 3.8, chloride 100, CO2 of 28, BUN and creatinine are 18 and 0.97, and serum glucose of 127. Accu-Cheks of 141, 176, and 154. Liver enzymes are normal. Albumin of 3.5. No chest x-ray from this morning. ASSESSMENT AND PLAN: This is an 78-year-old gentleman with a history of chronic obstructive pulmonary disease, amyotrophic lateral sclerosis, coronary disease, admitted for shortness of breath likely secondary to chronic obstructive pulmonary disease exacerbation as well as mild congestive heart failure concomitantly. Appreciate Dr. Young's and Dr. Faria's evaluation. 1. Chronic obstructive pulmonary disease. We will continue neb treatments, oxygen, and Dulera. No need for antibiotics per Pulmonary. 2. Cardiomyopathy with mild congestive heart failure. Dr. Faria gave him one dose of Lasix and he seems to have improved. We will continue diuresis as per Cardiology. Likely, he will need follow up in the [facility] Failure [facility]. 3. Amyotrophic lateral sclerosis, remained stable. 4. Hypertension. We will discontinue hydrochlorothiazide and continue the losartan. 5. Type 2 diabetes. We will continue Accu-Cheks and insulin sliding coverage. 6. Disposition. Due to his deconditioning, weakness, and continuing oxygen therapy, we will consult rehab for inpatient rehab placement prior to going home with his family. Job ID: [id number]
[2019-03-02] MEDS: cloNIDine 0.1 MG TAB PO SCH ×2 (09:40→21:11)
[2019-03-02] MEDS: Aspirin 325 MG TAB PO SCH (09:40)
[2019-03-02] MEDS: Atorvastatin Calcium 20 MG TAB PO SCH (09:40)
[2019-03-02] MEDS: Enoxaparin Sodium 40 MG/0.4 ML SYRINGE SC SCH (09:41)
[2019-03-02] MEDS: Clopidogrel Bisulfate 75 MG TAB PO SCH (09:41)
[2019-03-02] MEDS: Losartan 25 MG TAB PO SCH (09:41)
[2019-03-02] MEDS: Tamsulosin HCl 0.4 MG CAP PO SCH (09:41)
[2019-03-02] MEDS: Furosemide 40 MG TAB PO SCH (09:41)
--- NOTE | 2019-03-02 11:50 | PRG ---
DATE OF SERVICE: 03/02/2019 SUBJECTIVE: Mr. Cole feels better today. Reports his breathing is improved. OBJECTIVE: VITAL SIGNS: Blood pressure 137/63, pulse 67, on the monitor, it is sinus. LUNGS: Clear. CARDIAC: Normal S1, normal S2. ABDOMEN: Soft, nontender. EXTREMITIES: There is no edema. DIAGNOSTIC DATA: Echocardiogram showed normal left ventricular function with grade 1 diastolic dysfunction. The patient did have a good urine output with intravenous Lasix yesterday was -1 L. ASSESSMENT: 1. Shortness of breath, probably multifactorial including chronic obstructive pulmonary disease and diastolic congestive heart failure, likely acute on chronic. 2. Coronary artery disease. 3. Hypertension. PLAN: 1. Give him an additional dose of intravenous furosemide today. He is on oral furosemide. 2. No other medicine changes at this time. Job ID: [id number]
[2019-03-02] MEDS: metFORMIN 500 MG TAB PO PRN (12:06)
--- NOTE | 2019-03-02 13:02 | PRG ---
DATE OF SERVICE: 03/02/2019 SUBJECTIVE: Mr. Cole wore his trilogy device last night. He says he feels good today. OBJECTIVE: VITAL SIGNS: He is afebrile. Heart rate is 71, respiratory rate is 20, oximetry is 96, blood pressure 152/77. LUNGS: Clear. HEART: Regular rhythm. ABDOMEN: Soft and nontender. EXTREMITIES: Without asymmetry or edema. IMPRESSION: 1. Mikki Gehrig disease. 2. History of asthmatic bronchitis. 3. History of coronary artery bypass grafting. 4. History of a ARMSTRONG graft that had atresia secondary to competitive flow on cardiac cath in October of 2017. His forced vital capacity is down where it is just over 30%. We are noninvasively ventilating him at night. I suspect he had a mild amount of pulmonary edema on presentation. If he was not dealing with the muscle weakness from Mikki Gehrig disease, he probably would not have been symptomatic to the degree that he was on presentation. He says he feels much better than he did on presentation to the hospital. We will continue to follow the other physicians caring for him. Job ID: [id number] [facility]
[2019-03-02] MEDS ORDERED: Furosemide 40 MG/4 ML VIAL SLOW IVP SCH (14:00)
[2019-03-02] MEDS: Potassium Chloride 20 MEQ TAB PO SCH (14:15)
[2019-03-02] MEDS: Benzonatate 100 MG CAP PO SCH ×2 (14:15→21:10)
[2019-03-02] MEDS: Gabapentin 300 MG CAP PO SCH (21:10)
[2019-03-02] MEDS: Amlodipine 10 MG TAB PO SCH (21:11)
[2019-03-03] MEDS: Mometasone/Formoterol 120 PUFF INHALER INH SCH ×2 (07:12→19:48)
[2019-03-03] MEDS: Enoxaparin Sodium 40 MG/0.4 ML SYRINGE SC SCH (09:06)
[2019-03-03] MEDS: cloNIDine 0.1 MG TAB PO SCH ×2 (09:07→21:35)
[2019-03-03] MEDS: Clopidogrel Bisulfate 75 MG TAB PO SCH (09:07)
[2019-03-03] MEDS: Benzonatate 100 MG CAP PO SCH ×3 (09:07→21:39)
[2019-03-03] MEDS: Losartan 25 MG TAB PO SCH (09:07)
[2019-03-03] MEDS: Atorvastatin Calcium 20 MG TAB PO SCH (09:07)
[2019-03-03] MEDS: Tamsulosin HCl 0.4 MG CAP PO SCH (09:07)
[2019-03-03] MEDS: Furosemide 40 MG TAB PO SCH (09:07)
[2019-03-03] MEDS: Aspirin 325 MG TAB PO SCH (09:08)
--- NOTE | 2019-03-03 10:03 | PRG ---
DATE OF SERVICE: 03/03/2019 SUBJECTIVE: Mr. Cole feels better, no complaints. His breathing has improved. OBJECTIVE: VITAL SIGNS: Blood pressure 149/64, pulse 70 and regular. LUNGS: Clear. CARDIAC: Normal S1, normal S2. ABDOMEN: Soft, nontender. EXTREMITIES: No edema. ASSESSMENT: 1. Coronary artery disease, stable. 2. Clinically some diastolic heart failure, which appears to be stable, appears to be euvolemic. PLAN: 1. Continue oral furosemide. 2. We will not give him any further intravenous furosemide. He seems to be at the appropriate volume status. 3. Could be released to home from any time from a Cardiac standpoint. Job ID: [id number]
--- NOTE | 2019-03-03 10:27 | DIS ---
DATE OF ADMISSION: 02/27/2019 DATE OF DISCHARGE: 03/03/2019 ADMISSION DIAGNOSES: 1. Respiratory distress. 2. Congestive heart failure exacerbation. 3. Chronic obstructive pulmonary disease exacerbation. 4. Rule out aspiration. DISCHARGE DIAGNOSES: 1. Congestive heart failure exacerbation. 2. Chronic obstructive pulmonary disease. 3. Amyotrophic lateral sclerosis. CONSULTATIONS: Dr. Faria for Cardiology, Dr. Young and Dr. Pulido for Pulmonary. PROCEDURES: ICU monitoring, BiPAP, IV diuresis, swallow evaluation, and echocardiogram. HOSPITAL COURSE: This is an 78-year-old obese gentleman with history of ALS, COPD, and coronary artery disease, who was admitted after episode of persistent shortness of breath. The family states that he was in his usual state of health when he was eating and became short of breath. He had also had episodes on and off getting more short of breath with ambulating. He denied chest pain. His symptoms did not resolve and I called EMS. They resultant had to place him on BiPAP for relief and he presented to the emergency department on BiPAP. He was given steroids, DuoNeb with minimal improvement and he was admitted to the ICU overnight. The next day, he was able to be discharged out of the ICU to telemetry. Dr. Young saw the patient in evaluation. Due to his history of COPD, he continue the steroids and nebs. We felt like it was likely cardiac origin. Dr. Faria saw the patient and agreed to increase his diuresis and the patient had significant improvement. He was gently diuresed due to his age and kidney function. The patient improved, but continued to be weak in the room with some dyspnea on exertion. He was continued on his BiPAP at nighttime. He was stable, but needed further assistance, likely due to his ALS and other medical problems and he was going to require inpatient rehab to get him back to his baseline. He is stable for discharge to inpatient rehab once it was approved. DISCHARGE PHYSICAL EXAMINATION: VITAL SIGNS: Temperature 98.5, pulse is 72, respirations 16, blood pressure 135/64, and pulse ox 94% on 2 L nasal cannula. GENERAL: He is awake and alert. No acute distress. Speech is clear. NECK: Supple. HEART: Regular rate and rhythm. LUNGS: Distant. No wheeze, rales, or rhonchi. ABDOMEN: Obese, soft. EXTREMITIES: With minimal edema. DISCHARGE LABORATORY DATA: Reviewed. Accu-Cheks of 111, 125, 105, and 159. DISCHARGE MEDICATIONS: Include; 1. DuoNeb q.6. 2. Norvasc 10 mg daily. 3. Aspirin 325 mg daily. 4. Lipitor 20 mg daily. 5. Vitamin D 5000 units daily. 6. Clonidine 0.1 mg b.i.d. 7. Plavix 75 mg daily. 8. Lasix 40 mg daily. 9. Gabapentin 300 mg at bedtime. 10. Losartan 100 mg daily. 11. Metformin 500 mg p.r.n. 12. Dulera 200 mcg b.i.d. 13. Omeprazole 40 mg daily. 14. Riluzole 50 mg b.i.d. 15. Potassium 40 mEq daily. 16. Flomax 0.4 mg daily. FOLLOWUP INSTRUCTIONS: The patient to follow up in my office. Following his rehab stay, follow up with Dr. Faria and Dr. Pulido in 2 to 3 weeks. Job ID: [id number]
[2019-03-03] MEDS: Potassium Chloride 20 MEQ TAB PO SCH (14:07)
--- NOTE | 2019-03-03 18:04 | PRG ---
DATE OF SERVICE: 03/03/2019 SUBJECTIVE: Mr. Cole is afebrile. OBJECTIVE: VITAL SIGNS: Heart rate 61, respiratory rate is 20, oximetry is 97% on 2 L, and blood pressure 120/57. LUNGS: Clear. HEART: Regular rhythm. ABDOMEN: Soft. He says he is feeling better. His cough decreased with temperature in part secondary to Tessalon Perles. IMPRESSION: 1. Mikki Gehrig's disease. 2. Asthmatic bronchitis. 3. Stable coronary artery disease. 4. Mild diastolic heart failure. 5. He could be discharged home tomorrow. He will continue nocturnal ventilation for his Mikki Gehrig's, probably continue with medicines per Cardiology and follow up with me in 2 to 4 weeks after discharge from the hospital. Job ID: [id number]
[2019-03-03] MEDS: Gabapentin 300 MG CAP PO SCH (21:35)
[2019-03-03] MEDS: Amlodipine 10 MG TAB PO SCH (21:35)
[2019-03-04] MEDS: Mometasone/Formoterol 120 PUFF INHALER INH SCH ×2 (07:48→18:43)
[2019-03-04] MEDS: Atorvastatin Calcium 20 MG TAB PO SCH (10:29)
[2019-03-04] MEDS: Aspirin 325 MG TAB PO SCH (10:29)
[2019-03-04] MEDS: cloNIDine 0.1 MG TAB PO SCH ×2 (10:29→20:45)
[2019-03-04] MEDS: Losartan 25 MG TAB PO SCH (10:30)
[2019-03-04] MEDS: Tamsulosin HCl 0.4 MG CAP PO SCH (10:30)
[2019-03-04] MEDS: Clopidogrel Bisulfate 75 MG TAB PO SCH (10:30)
[2019-03-04] MEDS: Furosemide 40 MG TAB PO SCH (10:31)
[2019-03-04] MEDS: Enoxaparin Sodium 40 MG/0.4 ML SYRINGE SC SCH (10:32)
[2019-03-04] MEDS: Benzonatate 100 MG CAP PO SCH ×3 (10:33→20:46)
--- NOTE | 2019-03-04 12:08 | PRG ---
DATE OF SERVICE: 03/04/2019 SUBJECTIVE: The patient has no medical complaints for me today, although family knows he is not ready to go home nor do they want him going into rehab at this time either, which is somewhat contrary to the report I received. Nonetheless, the patient is a doing well, it seems with minimal shortness of breath. OBJECTIVE: VITAL SIGNS: Temperature is 97.5, blood pressure 145/66. LUNGS: Reveal bilateral breath sounds. HEART: Reveals a regular rate and rhythm without murmur, gallops, or rubs. EXTREMITIES: No clubbing, edema, or cyanosis. IMPRESSION: 1. Chronic obstructive pulmonary disease. 2. Congestive heart failure. PLAN: Since the family has elected against placed him in the rehab, they referred him to have home health. We will have him remain in the hospital for his primary care doctor to arrange further therapy and discharge. Job ID: [id number]
--- NOTE | 2019-03-04 12:50 | PRG ---
DATE OF SERVICE: 03/04/2019 SUBJECTIVE: This morning, he is better, he has refused to go to the rehab. OBJECTIVE: VITAL SIGNS: His sats are 95% on 2 L, respiratory rate 18, temperature 97, pulse 65, and blood pressure 145/66. CHEST: Bilateral rhonchi, crackles. CARDIAC: Normal S1 and S2. No gallops. ABDOMEN: No masses. ASSESSMENT: Chronic obstructive pulmonary disease, congestive heart failure, and severe deconditioning. PLAN: The patient is going to be in the hospital until his primary care physician decides what to do with the patient. In the meantime, continue neb treatments, supportive care, PT. Job ID: [id number]
[2019-03-04] MEDS: Potassium Chloride 20 MEQ TAB PO SCH (14:39)
[2019-03-04] MEDS: Amlodipine 10 MG TAB PO SCH (20:45)
[2019-03-04] MEDS: Gabapentin 300 MG CAP PO SCH (20:45)
[2019-03-05] MEDS: Mometasone/Formoterol 120 PUFF INHALER INH SCH (07:27)
[2019-03-05] MEDS: Atorvastatin Calcium 20 MG TAB PO SCH (09:11)
[2019-03-05] MEDS: Tamsulosin HCl 0.4 MG CAP PO SCH (09:11)
[2019-03-05] MEDS: Clopidogrel Bisulfate 75 MG TAB PO SCH (09:11)
[2019-03-05] MEDS: Furosemide 40 MG TAB PO SCH (09:12)
[2019-03-05] MEDS: Losartan 25 MG TAB PO SCH (09:12)
[2019-03-05] MEDS: Benzonatate 100 MG CAP PO SCH ×2 (09:13→14:24)
[2019-03-05] MEDS: Enoxaparin Sodium 40 MG/0.4 ML SYRINGE SC SCH (09:13)
[2019-03-05] MEDS: Aspirin 325 MG TAB PO SCH (09:13)
[2019-03-05] MEDS: cloNIDine 0.1 MG TAB PO SCH (09:13)
--- NOTE | 2019-03-05 09:18 | PRG ---
DATE OF SERVICE: 03/05/2019 SUBJECTIVE: Mr. Cole is breathing better. He is awake and alert. He has no complaints. He feels well. He is going to go home. OBJECTIVE: VITAL SIGNS: Blood pressure 145/67, pulse 60, it is regular. LUNGS: Clear. CARDIAC: Normal S1, normal S2. ABDOMEN: Soft, nontender. EXTREMITIES: There is minimal edema. ASSESSMENT: 1. Congestive heart failure, diastolic, chronic, compensated. 2. Coronary artery disease, stable. 3. Hypercholesterolemia, on medications. 4. Hypertension. CURRENT MEDICATIONS: 1. Losartan 100 mg a day. 2. Potassium 20 mEq a day. 3. Furosemide 40 mg a day. 4. Clopidogrel 75 mg a day. 5. Aspirin, it is currently 325 mg a day, dose could be reduced to 81 mg a day. PLAN: The patient can be released home. He will follow up with us in about 6 weeks. Job ID: [id number]
[2019-03-05 12:46] VITALS: BP 138/63; TEMP 97.8
--- NOTE | 2019-03-05 13:52 | DIS ---
DATE OF ADMISSION: 02/27/2019 DATE OF DISCHARGE: 03/05/2019 ADMISSION DIAGNOSES: 1. Respiratory distress. 2. Chronic obstructive pulmonary disease exacerbation. 3. Congestive heart failure exacerbation. 4. Rule out aspiration. 5. Amyotrophic lateral sclerosis. DISCHARGE DIAGNOSES: 1. Chronic obstructive pulmonary disease, improved. 2. Congestive heart failure, stable. 3. Obstructive sleep apnea. CONSULTATIONS: 1. Dr. Young and Dr. Pulido for Pulmonary. 2. Dr. Faria for Cardiology. PROCEDURES: Telemetry monitoring, ICU monitoring, BiPAP, IV diuresis. HOSPITAL COURSE: This is an 78-year-old gentleman with a history of ALS, who was admitted after an episode of acute dyspnea. He had two episodes, both occurred while eating. He was admitted, started on BiPAP and ICU monitoring. He quickly improved. It was noted that he did have evidence of congestive heart failure, and due to his ALS and COPD, it caused him to go into the respiratory distress. He had significant improvement with oxygen therapy and neb treatments for COPD as well as diuresis. He was seen by Dr. Young and Dr. Pulido for Pulmonary. He was able to wean off the BiPAP throughout the day and only use it at bedtime. Dr. Faria saw the patient for Cardiology. Echocardiogram was done, which did reveal decreased ejection fraction of 45%. He was given occasional doses of IV Lasix with good diuresis. He had significant improvement of his symptoms. He was ambulating in the room with some dyspnea. He did require oxygen therapy most of the days. He initially wanted to go to inpatient rehab due to his increased weakness. After discussing with the family, they decided they wanted to go home with outpatient PT and OT. He was stable per Cardiology and Pulmonary to be discharged, and he was sent home in good condition with close followup discharge. PHYSICAL EXAMINATION: VITAL SIGNS: Temperature 98.0, pulse 65, respirations 12 to 16, blood pressure 122/58, and pulse ox 94% on 2 L. GENERAL: He is awake and alert. No acute distress. Speech is clear. NECK: Supple. HEART: Regular rate and rhythm. LUNGS: Distant. No wheeze, rales, or rhonchi. ABDOMEN: Obese. EXTREMITIES: With no edema. LABORATORY DATA: Reviewed. Accu-Cheks of 118, 139, 103, and 146. DISCHARGE MEDICATIONS: 1. DuoNebs q.6 p.r.n. 2. Amlodipine 10 mg daily. 3. Aspirin 325 daily. 4. Lipitor 20 mg daily. 5. Vitamin D3 of 5000 units daily. 6. Clonidine 0.1 mg b.i.d. 7. Plavix 75 mg daily. 8. Lasix 40 mg daily. 9. Gabapentin 300 mg at bedtime. 10. Losartan 100 mg daily. 11. Metformin 500 mg p.r.n. 12. Dulera two puffs b.i.d. 13. Protonix 20 mg daily. 14. Riluzole 50 mg b.i.d. 15. MiraLAX p.r.n. 16. Potassium chloride 40 mEq daily with Lasix. 17. Flomax 0.4 mg daily. FOLLOWUP INSTRUCTIONS: The patient to follow up in my office in 1 week. Follow up with Dr. Pulido and Dr. Faria in 2 to 3 weeks. Outpatient PT/OT arranged. He is being tested to see if he qualifies for home oxygen along with his nighttime BiPAP. Job ID: [id number]
--- NOTE | 2019-03-05 18:49 | PRG ---
DATE OF SERVICE: 03/05/2019 SUBJECTIVE: Jose Cole was observed walk in the hernandez with Physical Therapy. He is examined back in his room. OBJECTIVE: VITAL SIGNS: His vital signs have been stable. LUNGS: Clear. HEART: Regular rhythm. S1 and S2 are normal. ABDOMEN: Soft and nontender. EXTREMITIES: Without edema or asymmetry. NEUROLOGIC: Nonfocal. IMPRESSION: 1. Amyotrophic lateral sclerosis. 2. Asthmatic bronchitis. 3. Diastolic dysfunction with mild pulmonary edema on admission. PLAN: Oxygen has been prescribed by the hospitalist. I suspect most of his gas exchange problems are related to atelectasis. Hopefully, this will improve with time. He will follow up with me in 1 to 2 weeks in the office. I met with his family and answered all of their questions. Job ID: [id number]
[2019-03-06] MEDS ORDERED: Potassium Chloride 20 MEQ TAB PO SCH (08:00)
--- NOTE | 2019-03-06 22:09 | EKG ---
Test Reason : SOB Blood Pressure : / mmHG Vent. Rate : 076 BPM Atrial Rate : 076 BPM P-R Int : 206 ms QRS Dur : 090 ms QT Int : 372 ms P-R-T Axes : 000 -16 072 degrees QTc Int : 418 ms Normal sinus rhythm Cannot rule out Anterior infarct , age undetermined Abnormal ECG Confirmed by ALYSSA LLAMAS ([id number]), editor house organ ISABEL WIATE ([id number]) on 03/06/2019 10:08:59 PM Referred By: Confirmed By:ALYSSA LLAMAS
== END 2019-03-05 18:30 | disposition home health service (06) | DRG 291 ==
LOC: ERS 20:35 → ERHOLD 22:47 → CCU 02-28 07:39 → 2NO 02-28 17:22
PROVIDERS: ADMIT Family Medicine; ATTEND Family Medicine
PROC: 5A09457 Assistance with Respiratory Ventilation, 24-96 Consecutive Hours, Continuous Positive Airway Pressure (ICD-10-PCS; principal; 2019-02-27)
DX: I11.0 Hypertensive heart disease with heart failure (principal); J96.00 Acute respiratory failure, unspecified whether with hypoxia or hypercapnia; G12.21 Amyotrophic lateral sclerosis; J44.1 Chronic obstructive pulmonary disease with (acute) exacerbation; I50.43 Acute on chronic combined systolic (congestive) and diastolic (congestive) heart failure; I42.9 Cardiomyopathy, unspecified; E11.9 Type 2 diabetes mellitus without complications; I25.10 Atherosclerotic heart disease of native coronary artery without angina pectoris; E78.00 Pure hypercholesterolemia, unspecified; E66.01 Morbid (severe) obesity due to excess calories; Z68.31 Body mass index [BMI] 31.0-31.9, adult; Z99.89 Dependence on other enabling machines and devices; Z79.82 Long term (current) use of aspirin; Z95.1 Presence of aortocoronary bypass graft; Z79.84 Long term (current) use of oral hypoglycemic drugs; Z79.01 Long term (current) use of anticoagulants; Z79.899 Other long term (current) drug therapy; Z87.891 Personal history of nicotine dependence
CPT/HCPCS: 36415; 36416; 71045; 80048; 80053; 82550; 83605; 83880; 84484; 85025; 87040; 93005; 93306; 94640; 94660; 94664; 96365; 96366; 96375; J1650; J1940; J1956; J7620

== ENCOUNTER 2020-11-27 11:32 | Inpatient (IN) | payer MEDICARE, BC ==
[2020-11-27] MEDS ORDERED: Nitroglycerin 2% Ointment 1 INCH/1 GM Packet ONE (12:00)
[2020-11-27] MEDS ORDERED: methylPREDNISolone Sod Succ/PF 125 MG/2 ML VIAL ONE (12:00)
[2020-11-27 12:02] LABS: #Basophils 0.1 thou/uL (0.0-0.2); #Eosinphils 0.1 thou/uL (0.0-0.7); #Lymphocytes 2.9 thou/uL (1.20-3.40); #Monocytes 0.8 thou/uL (0.11-0.59); #Neutrophils 7.2 thou/uL (1.40-6.50); %Basophils 0.8 % (0.0-1.0); %Lymphocytes 26.1 % (21.0-51.0); %Monocytes 7.5 % (0.0-10.0); %Neutrophils 64.7 % (42.0-75.0); Hemoglobin 13.1 g/dL (14.0-18.0); Mean Corpuscular HGB CONC 31.9 g/dL (32.0-36.0); Mean Corpuscular Hemoglobin 28.9 pg (27.0-31.0); Mean Corpuscular Volume 90.6 fL (78.0-98.0); Mean Platelet Volume 7.4 fL (7.4-10.4); Platelet Count 308 thou/uL (130-400); Red Blood Cell (RBC) Count 4.52 mill/uL (4.70-6.10); White Blood Cell (WBC) Count 11.1 thou/uL (4.8-10.8)
[2020-11-27 12:24] LABS: ALT (SGPT) 14 U/L (8-55); AST (SGOT) 19 U/L (5-34); Albumin 4.1 g/dL (3.4-4.8); Alkaline Phosphatase 84 U/L (40-110); Anion Gap 14 mmol/L (10-20); BUN (Urea Nitrogen) 9 mg/dL (8.4-25.7); Bilirubin, Total 0.6 mg/dL (0.2-1.2); CK (CPK) 171 U/L (30-200); Calc. Creatinine Clearance 0 mL/min (70-130); Calcium 10.5 mg/dL (7.8-10.44); Carbon Dioxide 26 mmol/L (23-31); Chloride 102 mmol/L (98-107); Globulin 4.3 g/dL (2.4-3.5); Glucose 147 mg/dL (83-110); Potassium 4.1 mmol/L (3.5-5.1); Protein, Total 8.4 g/dL (5.8-8.1); Sodium 138 mmol/L (136-145)
[2020-11-27] MEDS ORDERED: Nitroglycerin 50 MG/250 ML BOT 250 ML ONE ×2 (13:12→19:33)
[2020-11-27 13:35] LABS: Actual Bicarbonate (HCO3a) 25.9 mEq/L (22-28); Analyzer IN Cardio ER; Base Excess (BEa) 5.8 mEq/L (-2.0 to +3.0); Calcium, Ionized (arterial) 1.28 mmol/L (1.12-1.30); Carboxyhemoglobin (COHb) 1.1 gm% (0.0-3.0); Hemoglobin (Hb) 13.4 g/dL (14.0-18.0); O2 Tension (PaO2), arterial 77.4 mmHg (> 60.0); Potassium - ABG Lab 3.37 mmol/L (3.70-5.30); pH, Arterial 7.62 (7.35-7.45)
[2020-11-27 13:36] LABS: CO2 Tension 25.7 mmHg (35.0-45.0); Puncture Site LRA
[2020-11-27 13:39] LABS: ALV-art Gradient 104.375 mmHg (0-20)
[2020-11-27 16:47] LABS: Troponin I 0.011 ng/mL (< 0.028)
[2020-11-27 17:10] LABS: SARS-CoV-2 NAA Rapid Test Not Detected (NotDetected)
[2020-11-27] MEDS ORDERED: methylPREDNISolone Sod Succ 40 MG VIAL ONE ×2 (17:33→17:35)
[2020-11-27] MEDS: methylPREDNISolone Sod Succ 40 MG VIAL IVP SCH (18:19)
[2020-11-27 19:12] LABS: Troponin I 0.017 ng/mL (< 0.028)
[2020-11-27] MEDS ORDERED: Famotidine/PF 20 mg/2ml Vial ONE (20:07)
[2020-11-27] MEDS: Famotidine/PF 20 mg/2ml Vial SLOW IVP SCH (20:18)
[2020-11-27] MEDS: NITROGLYCERIN 25 MG/250 ML IV SCH (21:06)
[2020-11-27] MEDS ORDERED: Polyethylene Glycol 3350 17 GM Packet PO PRN (23:17)
[2020-11-27] MEDS ORDERED: Milk Of Magnesia 30 ML UDCUP PO PRN (23:17)
[2020-11-27] MEDS ORDERED: Calcium Polycarbophil 625 MG TAB PO PRN (23:17)
[2020-11-27 23:25] VITALS: BMI 32.1
[2020-11-27] MEDS ORDERED: Famotidine/PF 20 mg/2ml Vial SLOW IVP SCH (23:45)
[2020-11-27] MEDS ORDERED: Zinc Sulfate 220 MG CAP PO SCH (23:45)
[2020-11-27] MEDS ORDERED: Amlodipine 10 MG TAB PO SCH (23:45)
[2020-11-27] MEDS ORDERED: cloNIDine 0.1 MG TAB PO SCH (23:45)
[2020-11-27] MEDS: Budesonide 0.5 MG/2 ML NEB NEB SCH (23:47)
[2020-11-27] MEDS ORDERED: Gabapentin 100 MG CAP PO SCH (23:59)
[2020-11-28] MEDS: methylPREDNISolone Sod Succ 40 MG VIAL IVP SCH ×2 (00:06→06:05)
[2020-11-28] MEDS: NITROGLYCERIN 25 MG/250 ML IV SCH (01:49)
[2020-11-28] MEDS ORDERED: Nitroglycerin 50 MG/250 ML BOT 250 ML IVPB SCH (02:30)
[2020-11-28] MEDS: Clopidogrel Bisulfate 75 MG TAB PO SCH (08:22)
[2020-11-28] MEDS: Tamsulosin HCl 0.4 MG CAP PO SCH (08:22)
[2020-11-28] MEDS: Furosemide 40 MG TAB PO SCH (08:22)
[2020-11-28] MEDS: Atorvastatin Calcium 20 MG TAB PO SCH (08:22)
[2020-11-28] MEDS: Aspirin 81 mg Enteric Coated Tablet PO SCH (08:22)
[2020-11-28] MEDS: Docusate 100 MG CAP PO SCH (08:23)
[2020-11-28] MEDS: Enoxaparin Sodium 40 MG/0.4 ML SYRINGE SC SCH (08:23)
[2020-11-28] MEDS: Famotidine/PF 20 mg/2ml Vial SLOW IVP SCH ×2 (08:23→20:41)
[2020-11-28] MEDS: cloNIDine 0.1 MG TAB PO SCH ×2 (08:24→20:40)
[2020-11-28] MEDS: Budesonide 0.5 MG/2 ML NEB NEB SCH ×4 (08:29→23:47)
[2020-11-28] MEDS: Mometasone 200 MCG/Formoterol 5 MCG 120 PUFF INHALER INH SCH ×2 (08:30→19:44)
[2020-11-28] MEDS ORDERED: RILUZOLE 50 MG PO SCH (09:00)
[2020-11-28] MEDS: Labetalol HCl 100 MG/20 ML VIAL SLOW IVP PRN ×3 (09:44→23:16)
[2020-11-28] MEDS: Amlodipine 10 MG TAB PO SCH (20:41)
[2020-11-28] MEDS: Gabapentin 100 MG CAP PO SCH (20:41)
[2020-11-28] MEDS: Zinc Sulfate 220 MG CAP PO SCH (20:41)
[2020-11-28] MEDS ORDERED: GABAPENTIN 300 MG PO SCH (21:00)
[2020-11-28] MEDS: Guaifenesin DM 100-10/5 ML UDCUP PO PRN (23:13)
[2020-11-29] MEDS: Budesonide 0.5 MG/2 ML NEB NEB SCH ×3 (07:50→19:57)
[2020-11-29] MEDS: Mometasone 200 MCG/Formoterol 5 MCG 120 PUFF INHALER INH SCH ×2 (07:50→19:57)
[2020-11-29] MEDS: Tamsulosin HCl 0.4 MG CAP PO SCH (09:25)
[2020-11-29] MEDS: Famotidine/PF 20 mg/2ml Vial SLOW IVP SCH ×2 (09:25→21:12)
[2020-11-29] MEDS: Aspirin 81 mg Enteric Coated Tablet PO SCH (09:26)
[2020-11-29] MEDS: Atorvastatin Calcium 20 MG TAB PO SCH (09:26)
[2020-11-29] MEDS: cloNIDine 0.1 MG TAB PO SCH ×2 (09:26→21:14)
[2020-11-29] MEDS: predniSONE 20 MG TAB PO SCH (09:26)
[2020-11-29] MEDS: Enoxaparin Sodium 40 MG/0.4 ML SYRINGE SC SCH (09:26)
[2020-11-29] MEDS: Clopidogrel Bisulfate 75 MG TAB PO SCH (09:26)
[2020-11-29] MEDS: Docusate 100 MG CAP PO SCH (09:26)
[2020-11-29] MEDS: Furosemide 40 MG TAB PO SCH (09:26)
[2020-11-29] MEDS: Labetalol HCl 100 MG/20 ML VIAL SLOW IVP PRN (17:04)
[2020-11-29] MEDS: Amlodipine 10 MG TAB PO SCH (21:13)
[2020-11-29] MEDS: Gabapentin 100 MG CAP PO SCH (21:13)
[2020-11-29] MEDS: Zinc Sulfate 220 MG CAP PO SCH (21:13)
[2020-11-30] MEDS: Budesonide 0.5 MG/2 ML NEB NEB SCH ×4 (00:12→19:37)
[2020-11-30 04:29] LABS: #Lymphocytes 2.5 thou/uL (1.20-3.40); %Basophils 0.3 % (0.0-1.0); %Eosinophils 0.3 % (0.0-10.0); %Lymphocytes 21.5 % (21.0-51.0); %Monocytes 8.9 % (0.0-10.0); Hemoglobin 11.2 g/dL (14.0-18.0); Mean Corpuscular Hemoglobin 29.1 pg (27.0-31.0); Mean Corpuscular Volume 91.1 fL (78.0-98.0); Mean Platelet Volume 7.4 fL (7.4-10.4); Platelet Count 300 thou/uL (130-400); RBC Distribution Width 12.8 % (11.5-14.5); Red Blood Cell (RBC) Count 3.83 mill/uL (4.70-6.10); White Blood Cell (WBC) Count 11.7 thou/uL (4.8-10.8)
[2020-11-30 04:45] LABS: Anion Gap 9 mmol/L (10-20); BUN (Urea Nitrogen) 13 mg/dL (8.4-25.7); Calc. Creatinine Clearance 116 mL/min (70-130); Calcium 9.5 mg/dL (7.8-10.44); Carbon Dioxide 30 mmol/L (23-31); Chloride 103 mmol/L (98-107); Glucose 153 mg/dL (83-110); Potassium 3.7 mmol/L (3.5-5.1); Sodium 138 mmol/L (136-145)
[2020-11-30] MEDS: Mometasone 200 MCG/Formoterol 5 MCG 120 PUFF INHALER INH SCH ×2 (07:33→19:37)
[2020-11-30] MEDS: hydrALAZINE 25 MG TAB PO SCH ×2 (09:11→20:29)
[2020-11-30] MEDS: predniSONE 20 MG TAB PO SCH (09:12)
[2020-11-30] MEDS: Tamsulosin HCl 0.4 MG CAP PO SCH (09:12)
[2020-11-30] MEDS: Carvedilol 6.25 MG TAB PO SCH ×2 (09:12→17:41)
[2020-11-30] MEDS: Atorvastatin Calcium 20 MG TAB PO SCH (09:12)
[2020-11-30] MEDS: Famotidine/PF 20 mg/2ml Vial SLOW IVP SCH ×3 (09:13→23:45)
[2020-11-30] MEDS: Clopidogrel Bisulfate 75 MG TAB PO SCH (09:13)
[2020-11-30] MEDS: Docusate 100 MG CAP PO SCH (09:13)
[2020-11-30] MEDS: Aspirin 81 mg Enteric Coated Tablet PO SCH (09:13)
[2020-11-30] MEDS: Enoxaparin Sodium 40 MG/0.4 ML SYRINGE SC SCH (09:13)
[2020-11-30] MEDS: Furosemide 40 MG TAB PO SCH (09:13)
[2020-11-30] MEDS: Guaifenesin DM 100-10/5 ML UDCUP PO PRN ×2 (10:39→15:41)
[2020-11-30] MEDS: Amlodipine 10 MG TAB PO SCH (20:28)
[2020-11-30] MEDS: guaiFENesin ER 600 MG TAB PO SCH (20:28)
[2020-11-30] MEDS: Gabapentin 100 MG CAP PO SCH (20:29)
[2020-11-30] MEDS: Zinc Sulfate 220 MG CAP PO SCH (20:29)
[2020-12-01] MEDS: Budesonide 0.5 MG/2 ML NEB NEB SCH ×4 (00:41→18:56)
[2020-12-01] MEDS: Mometasone 200 MCG/Formoterol 5 MCG 120 PUFF INHALER INH SCH ×2 (07:35→18:56)
[2020-12-01] MEDS: Tamsulosin HCl 0.4 MG CAP PO SCH (08:15)
[2020-12-01] MEDS: predniSONE 20 MG TAB PO SCH (08:15)
[2020-12-01] MEDS: Carvedilol 6.25 MG TAB PO SCH ×2 (08:15→16:39)
[2020-12-01] MEDS: Aspirin 81 mg Enteric Coated Tablet PO SCH (08:15)
[2020-12-01] MEDS: Docusate 100 MG CAP PO SCH (08:16)
[2020-12-01] MEDS: hydrALAZINE 25 MG TAB PO SCH ×2 (08:16→20:26)
[2020-12-01] MEDS: Enoxaparin Sodium 40 MG/0.4 ML SYRINGE SC SCH (08:17)
[2020-12-01] MEDS: Furosemide 40 MG TAB PO SCH (08:17)
[2020-12-01] MEDS: Clopidogrel Bisulfate 75 MG TAB PO SCH (08:17)
[2020-12-01] MEDS: Atorvastatin Calcium 20 MG TAB PO SCH (08:17)
[2020-12-01] MEDS: guaiFENesin ER 600 MG TAB PO SCH ×2 (08:17→20:31)
[2020-12-01] MEDS: Famotidine/PF 20 mg/2ml Vial SLOW IVP SCH ×2 (08:37→20:30)
[2020-12-01] MEDS: Amlodipine 10 MG TAB PO SCH (20:27)
[2020-12-01] MEDS: Gabapentin 100 MG CAP PO SCH (20:29)
[2020-12-01] MEDS: Zinc Sulfate 220 MG CAP PO SCH (20:31)
[2020-12-01] MEDS: Labetalol HCl 100 MG/20 ML VIAL SLOW IVP PRN (21:51)
[2020-12-02] MEDS: Budesonide 0.5 MG/2 ML NEB NEB SCH ×3 (01:17→13:38)
[2020-12-02] MEDS: Mometasone 200 MCG/Formoterol 5 MCG 120 PUFF INHALER INH SCH (07:50)
[2020-12-02] MEDS: Tamsulosin HCl 0.4 MG CAP PO SCH (09:32)
[2020-12-02] MEDS: Furosemide 40 MG TAB PO SCH (09:33)
[2020-12-02] MEDS: Aspirin 81 mg Enteric Coated Tablet PO SCH (09:33)
[2020-12-02] MEDS: predniSONE 20 MG TAB PO SCH (09:33)
[2020-12-02] MEDS: Enoxaparin Sodium 40 MG/0.4 ML SYRINGE SC SCH (09:33)
[2020-12-02] MEDS: Atorvastatin Calcium 20 MG TAB PO SCH (09:33)
[2020-12-02] MEDS: guaiFENesin ER 600 MG TAB PO SCH (09:33)
[2020-12-02] MEDS: hydrALAZINE 25 MG TAB PO SCH (09:34)
[2020-12-02] MEDS: Carvedilol 6.25 MG TAB PO SCH (09:34)
[2020-12-02] MEDS: Docusate 100 MG CAP PO SCH (09:37)
[2020-12-02] MEDS: Clopidogrel Bisulfate 75 MG TAB PO SCH (09:38)
[2020-12-02] MEDS: Famotidine/PF 20 mg/2ml Vial SLOW IVP SCH (09:38)
[2020-12-02 13:28] VITALS: BP 158/60; TEMP 96.6
== END 2020-12-02 17:15 | disposition home or self-care (01) | DRG 291 ==
LOC: ERS 11:32 → ERHOLD 14:11 → CCU 21:52 → 2NO 11-28 16:16
PROVIDERS: ADMIT Internal Medicine; ATTEND Internal Medicine
PROC: 5A09357 Assistance with Respiratory Ventilation, Less than 24 Consecutive Hours, Continuous Positive Airway Pressure (ICD-10-PCS; principal; 2020-11-27)
DX: I11.0 Hypertensive heart disease with heart failure (principal); I50.31 Acute diastolic (congestive) heart failure; J96.21 Acute and chronic respiratory failure with hypoxia; G12.21 Amyotrophic lateral sclerosis; Z20.822 Contact with and (suspected) exposure to COVID-19; I25.10 Atherosclerotic heart disease of native coronary artery without angina pectoris; E11.9 Type 2 diabetes mellitus without complications; E78.5 Hyperlipidemia, unspecified; J44.9 Chronic obstructive pulmonary disease, unspecified; G47.33 Obstructive sleep apnea (adult) (pediatric); I16.0 Hypertensive urgency; Z95.1 Presence of aortocoronary bypass graft; Z95.0 Presence of cardiac pacemaker; Z87.891 Personal history of nicotine dependence; Z79.01 Long term (current) use of anticoagulants; Z79.84 Long term (current) use of oral hypoglycemic drugs; Z79.82 Long term (current) use of aspirin; Z79.51 Long term (current) use of inhaled steroids; Z79.899 Other long term (current) drug therapy; Z95.5 Presence of coronary angioplasty implant and graft
CPT/HCPCS: 0240U; 36415; 36600; 70450; 71045; 80048; 80053; 82550; 82805; 83880; 84484; 85025; 85379; 93005; 93306; 94640; 94660; 94760; 96365; 96366; 96375; 99292; J1650; J1956; J2920; J2930; J7512; J7620; J7626; S0028

== ENCOUNTER 2021-02-27 14:03 | Outpatient (CLI) | payer MEDICARE, BC | END 2021-02-27 14:04 | disposition home or self-care (01) | LOC: RAD 14:03 | PROVIDERS: ATTEND Physician Assistant Medical | DX: K59.00 Constipation, unspecified (principal); R68.81 Early satiety; R63.4 Abnormal weight loss; G12.21 Amyotrophic lateral sclerosis; K22.8 Other specified diseases of esophagus | CPT/HCPCS: 74246 ==

== ENCOUNTER 2021-03-03 22:49 | Inpatient (IN) | payer MEDICARE, BC ==
[2021-03-04] MEDS ORDERED: Ondansetron PF 4 MG/2 ML Vial IVP PRN (00:48)
[2021-03-04] MEDS ORDERED: Ondansetron ODT 4 MG TAB PO PRN (00:48)
[2021-03-04] MEDS ORDERED: Acetaminophen 650 MG Suppository PR PRN (00:48)
[2021-03-04] MEDS ORDERED: Acetaminophen 325 MG TAB PO PRN (00:48)
[2021-03-04] MEDS ORDERED: hydrALAZINE 20 MG/ML VIAL SLOW IVP PRN (00:54)
[2021-03-04] MEDS ORDERED: Amlodipine 10 MG TAB PO SCH ×2 (01:10→01:30)
[2021-03-04] MEDS ORDERED: guaiFENesin ER 600 MG TAB PO SCH (01:30)
[2021-03-04] MEDS ORDERED: Dextrose 50% Abboject 50 ML SYRINGE SLOW IVP PRN (01:55)
[2021-03-04] MEDS ORDERED: Dextrose 5% in Water 1,000 ML IV PRN (01:55)
[2021-03-04] MEDS ORDERED: HumaLOG 300 UNITS/3 ML VIAL SC PRN (01:55)
[2021-03-04 03:03] LABS: Anion Gap 16 mmol/L (10-20); BUN (Urea Nitrogen) 9 mg/dL (8.4-25.7); Calc. Creatinine Clearance 100 mL/min (70-130); Carbon Dioxide 24 mmol/L (23-31); Chloride 96 mmol/L (98-107); Glucose 164 mg/dL (83-110); Potassium 3.4 mmol/L (3.5-5.1); Sodium 133 mmol/L (136-145)
[2021-03-04] MEDS ORDERED: Potassium Chloride 20 MEQ TAB PO SCH (04:00)
[2021-03-04] MEDS ORDERED: Electrolyte Replacement Protocol 1 EACH FS PRN (06:00)
[2021-03-04] MEDS ORDERED: Magnesium 2 GM/50 ML 2 GM in Premix Bag 1 BAG IVPB SCH (06:00)
[2021-03-04 07:30] LABS: #Monocytes 1.9 thou/uL (0.11-0.59); #Neutrophils 11.2 thou/uL (1.40-6.50); %Basophils 0.2 % (0.0-1.0); %Eosinophils 0.2 % (0.0-10.0); %Monocytes 12.4 % (0.0-10.0); %Neutrophils 74.2 % (42.0-75.0); Hemoglobin 11.4 g/dL (14.0-18.0); Mean Corpuscular HGB CONC 33.4 g/dL (32.0-36.0); Mean Corpuscular Volume 89.9 fL (78.0-98.0); Mean Platelet Volume 7.8 fL (7.4-10.4); Platelet Count 266 thou/uL (130-400); RBC Distribution Width 12.5 % (11.5-14.5); Red Blood Cell (RBC) Count 3.79 mill/uL (4.70-6.10); White Blood Cell (WBC) Count 15.1 thou/uL (4.8-10.8)
[2021-03-04 09:31] LABS: Actual Bicarbonate (HCO3a) 31.7 mEq/L (22-28); CO2 Tension 50.9 mmHg (35.0-45.0); Carboxyhemoglobin (COHb) 1.4 gm% (0.0-3.0); Hemoglobin (Hb) 12.1 g/dL (14.0-18.0); O2 Tension (PaO2), arterial 74.5 mmHg (> 60.0); Potassium - ABG Lab 3.43 mmol/L (3.70-5.30); pH, Arterial 7.41 (7.35-7.45)
[2021-03-04 09:32] LABS: ALV-art Gradient 90.035 mmHg (0-20); Puncture Site RRA
[2021-03-04 10:12] LABS: Potassium 3.5 mmol/L (3.5-5.1)
[2021-03-04] MEDS: Amlodipine 10 MG TAB PO SCH (10:42)
[2021-03-04] MEDS: guaiFENesin ER 600 MG TAB PO SCH ×2 (10:42→20:04)
[2021-03-04] MEDS: Enoxaparin Sodium 40 MG/0.4 ML SYRINGE SC SCH (10:42)
[2021-03-04] MEDS: Labetalol HCl 100 MG/20 ML VIAL SLOW IVP PRN ×2 (11:43→21:40)
[2021-03-04] MEDS ORDERED: methylPREDNISolone Sod Succ 40 MG VIAL IVP SCH ×2 (12:00)
[2021-03-04] MEDS: HumaLOG 300 UNITS/3 ML VIAL SC PRN (12:07)
[2021-03-04] MEDS ORDERED: Potassium Bicarbonate/Cit Ac 20 MEQ TAB PO SCH (12:45)
[2021-03-04] MEDS: Arformoterol 15 MCG/2 ML NEB NEB SCH (18:30)
[2021-03-04] MEDS: Budesonide 0.5 MG/2 ML NEB NEB SCH (18:31)
[2021-03-05 03:22] LABS: #Basophils 0.1 thou/uL (0.0-0.2); #Eosinphils 0.1 thou/uL (0.0-0.7); #Lymphocytes 1.8 thou/uL (1.20-3.40); #Monocytes 1.6 thou/uL (0.11-0.59); #Neutrophils 10.1 thou/uL (1.40-6.50); %Basophils 0.4 % (0.0-1.0); %Eosinophils 0.4 % (0.0-10.0); %Lymphocytes 13.5 % (21.0-51.0); %Monocytes 11.5 % (0.0-10.0); %Neutrophils 74.1 % (42.0-75.0); Hemoglobin 11.4 g/dL (14.0-18.0); Mean Corpuscular HGB CONC 33.1 g/dL (32.0-36.0); Mean Corpuscular Hemoglobin 29.8 pg (27.0-31.0); Mean Platelet Volume 8.1 fL (7.4-10.4); Platelet Count 269 thou/uL (130-400); RBC Distribution Width 12.5 % (11.5-14.5); Red Blood Cell (RBC) Count 3.82 mill/uL (4.70-6.10); White Blood Cell (WBC) Count 13.6 thou/uL (4.8-10.8)
[2021-03-05] MEDS ORDERED: Magnesium 2 GM/50 ML 2 GM in Premix Bag 1 BAG IVPB SCH (03:45)
[2021-03-05 07:01] LABS: Actual Bicarbonate (HCO3a) 31.1 mEq/L (22-28); Base Excess (BEa) 5.9 mEq/L (-2.0 to +3.0); CO2 Tension 47.7 mmHg (35.0-45.0); Carboxyhemoglobin (COHb) 1.2 gm% (0.0-3.0); Hemoglobin (Hb) 11.7 g/dL (14.0-18.0); O2 Tension (PaO2), arterial 79.9 mmHg (> 60.0); Potassium - ABG Lab 3.43 mmol/L (3.70-5.30); pH, Arterial 7.43 (7.35-7.45)
[2021-03-05] MEDS: Arformoterol 15 MCG/2 ML NEB NEB SCH ×2 (07:14→18:54)
[2021-03-05] MEDS: Budesonide 0.5 MG/2 ML NEB NEB SCH ×2 (07:15→18:54)
[2021-03-05 07:16] LABS: Puncture Site RRA
[2021-03-05] MEDS: Amlodipine 10 MG TAB PO SCH (08:02)
[2021-03-05] MEDS: Enoxaparin Sodium 40 MG/0.4 ML SYRINGE SC SCH (08:03)
[2021-03-05] MEDS: guaiFENesin ER 600 MG TAB PO SCH ×2 (08:03→20:13)
[2021-03-05] MEDS ORDERED: Nitroglycerin 0.4 MG TAB (25 Tab Bottle) SL PRN (11:24)
[2021-03-05] MEDS ORDERED: Clopidogrel Bisulfate 75 MG TAB PO SCH (12:45)
[2021-03-05] MEDS ORDERED: Furosemide 40 MG TAB PO SCH (12:45)
[2021-03-05] MEDS ORDERED: Aspirin 81 mg Enteric Coated Tablet PO SCH (12:45)
[2021-03-05] MEDS: Labetalol HCl 100 MG/20 ML VIAL SLOW IVP PRN ×2 (13:25→20:18)
[2021-03-05] MEDS: Carvedilol 6.25 MG TAB PO SCH (16:09)
[2021-03-05] MEDS: Sucralfate 1 GM/10 ML UDCUP PO SCH (16:09)
[2021-03-05] MEDS: HumaLOG 300 UNITS/3 ML VIAL SC PRN (17:35)
[2021-03-05] MEDS: Gabapentin 100 MG CAP PO SCH (20:12)
[2021-03-05] MEDS: Tamsulosin HCl 0.4 MG CAP PO SCH (20:12)
[2021-03-05] MEDS: Atorvastatin Calcium 40 MG TAB PO SCH (20:13)
[2021-03-05] MEDS: Famotidine 20 MG TAB PO SCH (20:13)
[2021-03-05] MEDS ORDERED: Amlodipine 10 MG TAB PO SCH (21:00)
[2021-03-05] MEDS ORDERED: RILUZOLE 50 MG PO SCH ×2 (21:00)
[2021-03-05] MEDS ORDERED: Polyethylene Glycol 3350 17 GM Packet PO PRN (21:00)
[2021-03-06] MEDS: Arformoterol 15 MCG/2 ML NEB NEB SCH ×2 (07:36→19:18)
[2021-03-06] MEDS: Budesonide 0.5 MG/2 ML NEB NEB SCH ×2 (07:36→19:18)
[2021-03-06] MEDS ORDERED: Clopidogrel Bisulfate 75 MG TAB PO SCH ×2 (09:00)
[2021-03-06] MEDS ORDERED: Aspirin 81 mg Enteric Coated Tablet PO SCH (09:00)
[2021-03-06] MEDS ORDERED: Furosemide 40 MG TAB PO SCH (09:00)
[2021-03-06] MEDS: guaiFENesin ER 600 MG TAB PO SCH ×2 (09:39→20:51)
[2021-03-06] MEDS: Amlodipine 10 MG TAB PO SCH (09:39)
[2021-03-06] MEDS: Carvedilol 6.25 MG TAB PO SCH ×2 (09:39→16:53)
[2021-03-06] MEDS: Clopidogrel Bisulfate 75 MG TAB PO SCH (09:40)
[2021-03-06] MEDS: Furosemide 40 MG TAB PO SCH (09:40)
[2021-03-06] MEDS: Sucralfate 1 GM/10 ML UDCUP PO SCH ×3 (09:40→16:52)
[2021-03-06] MEDS: Aspirin 81 mg Enteric Coated Tablet PO SCH (09:40)
[2021-03-06] MEDS: Enoxaparin Sodium 40 MG/0.4 ML SYRINGE SC SCH (09:40)
[2021-03-06] MEDS: Famotidine 20 MG TAB PO SCH (09:41)
[2021-03-06] MEDS: HumaLOG 300 UNITS/3 ML VIAL SC PRN ×2 (11:34→17:24)
[2021-03-06] MEDS: Labetalol HCl 100 MG/20 ML VIAL SLOW IVP PRN (17:34)
[2021-03-06] MEDS ORDERED: cloNIDine 0.1 MG TAB PO PRN (18:40)
[2021-03-06] MEDS: Gabapentin 100 MG CAP PO SCH (20:51)
[2021-03-06] MEDS: Tamsulosin HCl 0.4 MG CAP PO SCH (20:51)
[2021-03-06] MEDS: Atorvastatin Calcium 40 MG TAB PO SCH (20:52)
[2021-03-07] MEDS: Arformoterol 15 MCG/2 ML NEB NEB SCH ×2 (07:24→19:15)
[2021-03-07] MEDS: Budesonide 0.5 MG/2 ML NEB NEB SCH ×2 (07:24→19:14)
[2021-03-07] MEDS: Aspirin 81 mg Enteric Coated Tablet PO SCH (08:40)
[2021-03-07] MEDS: Furosemide 40 MG TAB PO SCH (08:40)
[2021-03-07] MEDS: Clopidogrel Bisulfate 75 MG TAB PO SCH (08:40)
[2021-03-07] MEDS: Amlodipine 10 MG TAB PO SCH (08:40)
[2021-03-07] MEDS: guaiFENesin ER 600 MG TAB PO SCH ×2 (08:40→21:25)
[2021-03-07] MEDS: Carvedilol 6.25 MG TAB PO SCH ×2 (08:40→17:56)
[2021-03-07] MEDS: Enoxaparin Sodium 40 MG/0.4 ML SYRINGE SC SCH (08:41)
[2021-03-07] MEDS: Sucralfate 1 GM/10 ML UDCUP PO SCH ×3 (08:42→17:56)
[2021-03-07 09:24] LABS: Anion Gap 16 mmol/L (10-20); BUN (Urea Nitrogen) 15 mg/dL (8.4-25.7); Calc. Creatinine Clearance 110 mL/min (70-130); Calcium 10.7 mg/dL (7.8-10.44); Carbon Dioxide 27 mmol/L (23-31); Chloride 92 mmol/L (98-107); Glucose 140 mg/dL (83-110); Magnesium 1.7 mg/dL (1.6-2.6); Potassium 3.2 mmol/L (3.5-5.1); Sodium 132 mmol/L (136-145)
[2021-03-07] MEDS ORDERED: Potassium Chloride 20 MEQ TAB PO SCH (09:45)
[2021-03-07] MEDS ORDERED: Magnesium 2 GM/50 ML 2 GM in Premix Bag 1 BAG IVPB SCH (09:45)
[2021-03-07] MEDS: HumaLOG 300 UNITS/3 ML VIAL SC PRN (11:57)
[2021-03-07] MEDS ORDERED: Senokot 8.6 MG TAB PO SCH (11:57)
[2021-03-07] MEDS ORDERED: Megestrol Acetate 40 MG TAB PO SCH (12:45)
[2021-03-07] MEDS ORDERED: Finasteride 5 MG TAB PO SCH (13:00)
[2021-03-07 14:28] VITALS: BMI 25.7
[2021-03-07] MEDS: Atorvastatin Calcium 40 MG TAB PO SCH (21:25)
[2021-03-07] MEDS: Gabapentin 100 MG CAP PO SCH (21:25)
[2021-03-07] MEDS: Polyethylene Glycol 3350 17 GM Packet PO SCH (21:25)
[2021-03-07] MEDS: Tamsulosin HCl 0.4 MG CAP PO SCH (21:25)
[2021-03-08 05:10] LABS: Hemoglobin 10.9 g/dL (14.0-18.0); Mean Corpuscular HGB CONC 32.8 g/dL (32.0-36.0); Mean Corpuscular Hemoglobin 29.6 pg (27.0-31.0); Mean Corpuscular Volume 90.2 fL (78.0-98.0); Mean Platelet Volume 7.6 fL (7.4-10.4); Platelet Count 318 thou/uL (130-400); RBC Distribution Width 12.2 % (11.5-14.5); Red Blood Cell (RBC) Count 3.67 mill/uL (4.70-6.10); White Blood Cell (WBC) Count 16.3 thou/uL (4.8-10.8)
[2021-03-08 05:20] LABS: Anion Gap 14 mmol/L (10-20); BUN (Urea Nitrogen) 13 mg/dL (8.4-25.7); Calc. Creatinine Clearance 116 mL/min (70-130); Calcium 10.1 mg/dL (7.8-10.44); Carbon Dioxide 29 mmol/L (23-31); Chloride 92 mmol/L (98-107); Glucose 142 mg/dL (83-110); Potassium 3.1 mmol/L (3.5-5.1); Sodium 132 mmol/L (136-145)
[2021-03-08] MEDS ORDERED: Potassium Chloride 20 MEQ TAB PO SCH (06:15)
[2021-03-08] MEDS: Carvedilol 6.25 MG TAB PO SCH ×2 (07:44→17:16)
[2021-03-08] MEDS: Aspirin 81 mg Enteric Coated Tablet PO SCH (07:50)
[2021-03-08] MEDS: Sucralfate 1 GM/10 ML UDCUP PO SCH ×2 (07:50→17:15)
[2021-03-08] MEDS: Arformoterol 15 MCG/2 ML NEB NEB SCH ×2 (07:50→18:30)
[2021-03-08] MEDS: Budesonide 0.5 MG/2 ML NEB NEB SCH ×2 (07:50→18:30)
[2021-03-08] MEDS: Clopidogrel Bisulfate 75 MG TAB PO SCH (07:51)
[2021-03-08] MEDS: Polyethylene Glycol 3350 17 GM Packet PO SCH (07:51)
[2021-03-08] MEDS ORDERED: Megestrol Acetate 40 MG TAB PO SCH (09:00)
[2021-03-08] MEDS ORDERED: Senokot 8.6 MG TAB PO SCH (09:00)
[2021-03-08] MEDS ORDERED: Finasteride 5 MG TAB PO SCH (09:00)
[2021-03-08] MEDS ORDERED: PROPOFOL 200 MG/20 ML VIAL ONE (10:51)
[2021-03-08] MEDS ORDERED: Lidocaine 1% PF 5 ML VIAL ONE (10:51)
[2021-03-08] MEDS ORDERED: Promethazine HCl 25 MG/ML VIAL IVPB PRN (11:19)
[2021-03-08] MEDS ORDERED: Promethazine HCl 25 MG/ML VIAL IM PRN (11:19)
[2021-03-08] MEDS ORDERED: Ondansetron HCl/PF 4 MG/2 ML Vial IVP PRN (11:19)
[2021-03-08] MEDS ORDERED: Fentanyl 100 MCG/2 ML VIAL ONE (12:00)
[2021-03-08] MEDS ORDERED: EPINEPHrine 1 MG/10 ML Abboject SYRINGE ONE (14:36)
[2021-03-08] MEDS ORDERED: Sodium Bicarb 50 MEQ/50 ML Abboject 8.4% SYRINGE ONE (14:36)
[2021-03-08 15:53] VITALS: BP 97/63; TEMP 97.6
[2021-03-08] MEDS: Furosemide 40 MG TAB PO SCH (17:15)
[2021-03-08] MEDS: guaiFENesin ER 600 MG TAB PO SCH (17:15)
[2021-03-08] MEDS: Amlodipine 10 MG TAB PO SCH (17:15)
== END 2021-03-08 18:36 | disposition expired | DRG 56 ==
LOC: IMCU/EMU 22:49 → SURG B 03-07 16:06
PROVIDERS: ADMIT Student in an Organized Health Care Education/Training Program; ATTEND Internal Medicine
PROC: 5A09357 Assistance with Respiratory Ventilation, Less than 24 Consecutive Hours, Continuous Positive Airway Pressure (ICD-10-PCS; 2021-03-03)
PROC: 5A09357 Assistance with Respiratory Ventilation, Less than 24 Consecutive Hours, Continuous Positive Airway Pressure (ICD-10-PCS; 2021-03-07)
PROC: 0DH63UZ Insertion of Feeding Device into Stomach, Percutaneous Approach (ICD-10-PCS; principal; 2021-03-08)
PROC: 5A12012 Performance of Cardiac Output, Single, Manual (ICD-10-PCS; 2021-03-08)
PROC: 0BH18EZ Insertion of Endotracheal Airway into Trachea, Via Natural or Artificial Opening Endoscopic (ICD-10-PCS; 2021-03-08)
DX: G12.21 Amyotrophic lateral sclerosis (principal); J18.9 Pneumonia, unspecified organism; J96.22 Acute and chronic respiratory failure with hypercapnia; J96.21 Acute and chronic respiratory failure with hypoxia; J44.1 Chronic obstructive pulmonary disease with (acute) exacerbation; I42.9 Cardiomyopathy, unspecified; E87.1 Hypo-osmolality and hyponatremia; J44.0 Chronic obstructive pulmonary disease with (acute) lower respiratory infection; Z20.822 Contact with and (suspected) exposure to COVID-19; R13.10 Dysphagia, unspecified; K59.00 Constipation, unspecified; I25.10 Atherosclerotic heart disease of native coronary artery without angina pectoris; E87.6 Hypokalemia; I10 Essential (primary) hypertension; E11.9 Type 2 diabetes mellitus without complications; N40.0 Benign prostatic hyperplasia without lower urinary tract symptoms; I46.9 Cardiac arrest, cause unspecified; Z95.1 Presence of aortocoronary bypass graft; Z88.8 Allergy status to other drugs, medicaments and biological substances; Z79.84 Long term (current) use of oral hypoglycemic drugs; Z79.899 Other long term (current) drug therapy; Z79.82 Long term (current) use of aspirin; Z98.890 Other specified postprocedural states
CPT/HCPCS: 36415; 36416; 36600; 71045; 74018; 76705; 80048; 82805; 83735; 83880; 85025; 85027; 94640; 94660; J0171; J0360; J1650; J1815; J1956; J2704; J3010; J3475; J7620; J7626; S0179